=== PATIENT | male | born 1980 | race African-American/Black ===

== ENCOUNTER 2017-02-06 12:50 | Inpatient (IN) | payer OTHER ==
--- NOTE | 2017-02-06 15:39 | HP ---
CIWA Score - CIWA Score Nausea/Vomitin Muscle Tremors: 3 Anxiety: 3 Agitation: 3 Paroxysmal Sweats: 2 Orientation: 0-Oriented Tacttile Disturbances: 2-Mild Itch/Numbness/Burn Auditory Disturbances: 2-Mild Harshness/Frighten Visual Disturbances: 2-Mild Sensitivity Headache: 2-Mild CIWA-Ar Total Score: 22 Admission ROS BHS - HPI Chief Complaint: i am here for detox from alcohol Allergies/Adverse Reactions: Allergies Allergy/AdvReac Type Severity Reaction Status Date / Time No Known Allergies Allergy Verified 02/06/17 16:18 History of Present Illness: this 36 years old male with alcohol dependence.seeking detox from alcohol,last detox [facility] to 06/20/ not completed seizure alcohol related syncope nicotine dependence no significant period for sobriety - Ebola screening Have you traveled outside of the country in the last 21 days: No Have you had contact with anyone from an Ebola affected area: No Have you been sick,other than usual withdrawal symptoms: No Do you have a fever: No - Review of Systems Constitutional: Chills, Loss of Appetite, Malaise, Night Sweats, Changes in sleep, Unintentional Wgt. Loss EENT: reports: Nose Congestion Respiratory: reports: No Symptoms reported Cardiac: reports: Palpitations GI: reports: Diarrhea, Nausea, Poor Appetite, Vomiting : reports: No Symptoms Reported Musculoskeletal: reports: Back Pain, Muscle Pain Integumentary: reports: Dryness Endocrine: reports: No Symptoms Reported Hematology: reports: No Symptoms Reported Psychiatric: reports: Anxious (insomnia), Depressed Patient History - Patient Medical History Hx Anemia: No Hx Asthma: No Hx Chronic Obstructive Pulmonary Disease (COPD): No Hx Cancer: No Hx Cardiac Disorders: No Hx Congestive Heart Failure: No Hx Hypertension: No Hx Hypercholesterolemia: No Hx Pacemaker: No HX Cerebrovascular Accident: No Hx Seizures: Yes (drug reaction 2005 and a second for cocaine injgestion 2004) Hx Dementia: No Hx Diabetes: No Hx Gastrointestinal Disorders: No Hx Liver Disease: No Hx Genitourinary Disorders: No Hx Sexually Transmitted Disorders: No Hx Renal Disease (ESRD): No Hx Thyroid Disease: No Hx Human Immunodeficiency Virus (HIV): No (last in 12/10) Hx Hepatitis C: No Hx Depression: No Hx Suicide Attempt: No Hx Bipolar Disorder: Yes (WAS ON SEROQUEL,RISPERDAL AND CELEXA) Hx Schizophrenia: Yes Other Medical History: no suicidal,no homicidal - Patient Surgical History Past Surgical History: No Hx Neurologic Surgery: No Hx Cataract Extraction: No Hx Cardiac Surgery: No Hx Lung Surgery: No Hx Breast Surgery: No Hx Breast Biopsy: No Hx Abdominal Surgery: No Hx Appendectomy: No Hx Cholecystectomy: No Hx Genitourinary Surgery: No Hx Section: No Hx Orthopedic Surgery: No - PPD History Previous Implant?: Yes Documented Results: Negative w/o proof Implanted On Prior [facility] Admission?: Yes Date: 06/20/15 Results: 00mm PPD to be Administered?: Yes - Smoking Cessation Smoking history: Current every day smoker Have you smoked in the past 12 months: Yes Aproximately how many cigarettes per day: 15 Cigars Per Day: 0 Hx Chewing Tobacco Use: No Initiated information on smoking cessation: Yes 'Breaking Loose' booklet given: 02/06/17 - Substances Abused Alcohol Route: Oral Frequency: Daily Amount used: 2 pints vodka Age of first use: 13 Date of Last Use: 02/06/17 Family Disease History - Family Disease History Family History: Denies Admission Physical Exam S - Vital Signs Vital Signs: Vital Signs - 24 hr 02/06/17 14:33 Temperature 97 F L Pulse Rate 98 H Respiratory 20 Rate Blood Pressure 120/71 - Physical General Appearance: Yes: Moderate Distress, Tremorous, Irritable, Sweating, Anxious HEENTM: Yes: Hearing grossly Normal, Normal ENT Inspection, BORIS, Pharynx Normal Respiratory: Yes: Lungs Clear, Normal Breath Sounds Neck: Yes: Within Normal Limits, Supple, Trachea in good position Breast: Yes: Within Normal Limits Cardiology: Yes: Within Normal Limits, Regular Rhythm, Regular Rate, S1, S2 Abdominal: Yes: Within Normal Limits, Normal Bowel Sounds, Non Tender, Flat, Soft Genitourinary: Yes: Within Normal Limits Back: Yes: Muscle Spasm Musculoskeletal: Yes: full range of Motion, Back pain, Muscle Pain Extremities: Yes: Within Normal Limits, Normal Range of Motion, Tremors Neurological: Yes: Within Normal Limits, 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 NML intact, Fully Oriented, Alert, Motor Strength 5/5 Integumentary: Yes: Dry Lymphatic: Yes: Within Normal Limits - Diagnostic (1) Alcohol dependence with uncomplicated withdrawal Current Visit: Yes Status: Acute (2) Nicotine dependence Current Visit: Yes Status: Acute (3) Weight decreased Current Visit: No Status: Acute (4) Anxiety and depression Current Visit: Yes Status: Acute (5) Insomnia Current Visit: Yes Status: Acute (6) Schizoaffective disorder Current Visit: Yes Status: Suspected Qualifiers: Schizoaffective disorder type: other Qualified Code(s): F25.8 - Other schizoaffective disorders Comment: Self-report.Non adherent to medications. (7) Seizure Current Visit: Yes Status: Acute (8) Syncope Current Visit: Yes Status: Acute Cleared for Admission [facility] - Detox or Rehab [facility] Level of Care: Medically Managed Detox Regimen/Protocol: Librium [facility] Breath Alcohol Content Breath Alcohol Content: 0.232 Urine Drug Screen - Results Drug Screen Negative: No Urine Drug Screen Results: BZO-Benzodiazepines
[2017-02-06 15:51] VITALS: BMI 20.9
[2017-02-06] MEDS ORDERED: MAGNESIUM CITRATE 300 ML BOTTLE PO PRN (15:52)
[2017-02-06] MEDS ORDERED: LOPERAMIDE HCL 2 MG CAPSULE PO PRN (15:52)
[2017-02-06] MEDS ORDERED: diphenhydrAMINE HCL 50 MG CAPSULE PO PRN (15:52)
[2017-02-06] MEDS ORDERED: P-EPHED 60MG/TRIPROLIDI 2.5MG TABLET PO PRN (15:52)
[2017-02-06] MEDS ORDERED: guaiFENesin/D-METHORPHAN HB 10 ML UNIT-DOSE CUPS PO PRN (15:52)
[2017-02-06] MEDS ORDERED: MAG HYDROX/AL HYDROX/SIMETH 30 ML UNIT-DOSE CUP PO PRN (15:52)
[2017-02-06] MEDS ORDERED: chlordiazePOXIDE HCL 25 MG CAPSULE PO PRN (15:52)
[2017-02-06] MEDS ORDERED: MENTHOL/PHENOL 1 EACH UD MM PRN (15:52)
[2017-02-06] MEDS ORDERED: MAGNESIUM HYDROX 2400MG/30ML ORAL SUSPENSION 30 ML CUP PO PRN (15:52)
[2017-02-06] MEDS ORDERED: chlordiazePOXIDE HCL 25 MG CAPSULE PO ONE (16:45)
--- NOTE | 2017-02-06 17:11 | CONSULT ---
[facility] Psychiatric Consult - Data Date of interview: 02/06/17 Admission source: [facility] Identifying data: Readmission to [facility] for this 36 y/o AA male seeking detox treatment on for alcohol dependence (uses cocaine occasionally) .Patient is single,a father of two,homeless (lives in a fpc),unemployed and supported by relatives. Substance Abuse History: Patient reports abusing alcohol since age 13.Consumes Marina rum,vodka and beer on a daily basis."Whatever I can get my hands on." Admits to drinking 2 pints-2 1/2 pints of vodka daily + 2-3 x 12 oz cans of beer /day.Smokes 10 - 15 cigarettes daily.Has not used cocaine (snorting) for several months as per self-report. Medical History: History of abnormal liver function tests (elevated enzymes) in 2014.Alcohol-related seizures. Psychiatric History: No reported history of psychiatric hospitalizations.He Patient states that he used to get [facility] psychiatric services at the [facility].At the time,he was managed (under the diagnosis of Schizoaffective Disorder) on a regimen of risperdal,celexa and seroquel.Mr Santoyo indicates that he has been lost to psychiatric follow up for several months.No history of suicide attempts. Physical/Sexual Abuse/Trauma History: Patient denies. Mental Status Exam - Mental Status Exam Alert and Oriented to: Time, Place, Person Cognitive Function: Good Patient Appearance: Unkempt, Disheveled Mood: Nervous, Anxious, Apprehensive Affect: Mood Congruent Patient Behavior: Fatigued, Appropriate, Cooperative (friendly) Speech Pattern: Clear, Appropriate Voice Loudness: Normal Thought Process: Goal Oriented Thought Disorder: Not Present Hallucinations: Denies Suicidal Ideation: Denies Homicidal Ideation: Denies Insight/Judgement: Poor Sleep: Poorly, Difficulty falling asleep Appetite: Good Muscle strength/Tone: Normal Gait/Station: Normal Psychiatric Findings - Problem List ([place] 1, 2,3) (1) Alcohol dependence with uncomplicated withdrawal Current Visit: Yes Status: Acute (2) Nicotine dependence Current Visit: Yes Status: Acute (3) Schizoaffective disorder Current Visit: Yes Status: Suspected Qualifiers: Schizoaffective disorder type: other Qualified Code(s): F25.8 - Other schizoaffective disorders Comment: Self-report.Non adherent to medications. (4) Substance induced mood disorder Current Visit: Yes Status: Acute (5) Insomnia Current Visit: Yes Status: Acute - Initial Treatment Plan Initial Treatment Plan: Psychoeducation.Detoxification.Ambien 10 mg po hs prn.Patient is made aware of risk of parasomnias.He agrees with this careplan.Observation.Medications reconciliation : No home medications.Pharmacy claims : NONE.
[2017-02-06] MEDS: NICOTINE 21 MG/24 HOURS TOPICAL PATCH TD SCH (17:18)
[2017-02-06 21:20] LABS: URINE APPEARANCE SLCLOUDY; URINE BLOOD NEGATIVE (NEGATIVE); URINE COLOR AMBER; URINE GLUCOSE (UA) NEGATIVE (NEGATIVE); URINE KETONE TRACE (NEGATIVE); URINE LEUK ESTERASE NEGATIVE (NEGATIVE); URINE NITRITE NEGATIVE (NEGATIVE); URINE UROBILINOGEN 4.0 E.U/dl mg/dL (0.2-1.0)
[2017-02-06 21:21] LABS: URINE PROTEIN 1+ (NEGATIVE)
[2017-02-06] MEDS: THIAMINE HCL 100 MG TABLET (FP) PO SCH (22:09)
[2017-02-06] MEDS: chlordiazePOXIDE HCL 25 MG CAPSULE PO SCH (22:10)
[2017-02-06] MEDS: ZOLPIDEM TARTRATE 10 MG TABLET (PARK CARE ONLY) PO PRN (22:10)
[2017-02-06 22:29] LABS: URINE BACTERIA RARE /hpf (NONE SEEN); URINE HYALINE CAST 1 /lpf; URINE MUCUS MANY; URINE RBC 1 /hpf (0-3); URINE WBC 1 /hpf (3-5)
[2017-02-07] MEDS: chlordiazePOXIDE HCL 25 MG CAPSULE PO SCH ×4 (05:33→22:14)
[2017-02-07] MEDS: NICOTINE 21 MG/24 HOURS TOPICAL PATCH TD SCH (10:12)
[2017-02-07] MEDS: PRENATAL VITAMINS W/ FOLIC ACID TABLET (FP) PO SCH (10:12)
[2017-02-07 10:22] LABS: MCH 35.3 pg (25.7-33.7); MCHC 33.1 g/dl (32.0-35.9); MEAN CELL VOLUME 106.6 fl (80-96); MEAN PLT VOLUME 10.3 fl (7.5-11.1); PLATELET COUNT 135 K/MM3 (134-434); RDW 17.6 % (11.9-15.9); WHITE BLOOD COUNT 10.4 K/mm3 (4.0-10.0)
[2017-02-07 10:43] LABS: ALBUMIN 2.2 g/dl (3.4-5.0); ALK PHOS 584 U/L (45-117); ANION GAP 11 (8-16); BILIRUBIN,TOTAL 4.9 mg/dL (0.2-1.0); CALCIUM 7.7 mg/dL (8.5-10.1); CO2 27 mmol/L (21-32); CREATININE 0.6 mg/dL (0.7-1.3); GLUCOSE,RANDOM 75 mg/dL (74-106); SGPT/ALT 193 U/L (12-78); TOT PROT 6.9 g/dl (6.4-8.2)
[2017-02-07 10:44] LABS: SGOT/AST 556 U/L (15-37)
[2017-02-07 11:26] LABS: HIV 1 & 2 AB NEGATIVE; HIV 1 AGp24 NEGATIVE
--- NOTE | 2017-02-07 12:07 | PN ---
S CIWA - CIWA Score Nausea/Vomitin Muscle Tremors: 4-Moderate,w/Arms Extend Anxiety: 4-Mod. Anxious/Guarded Agitation: 3 Paroxysmal Sweats: 3 Orientation: 0-Oriented Tacttile Disturbances: 0-None Auditory Disturbances: 0-None Visual Disturbances: 0-None Headache: 0-None Present CIWA-Ar Total Score: 16 S Progress Note (SOAP) Subjective: Anxiety,tremors,sweating,interrupted sleep,restless Objective: 02/07/17 12:04 Vital Signs - 8 hr 02/07/17 02/07/17 06:23 09:55 Temperature 98.9 F 100.3 F H Pulse Rate 102 H 105 H Respiratory 18 20 Rate Blood Pressure 113/79 124/77 Laboratory Results - last 24 hr 02/06/17 02/06/17 02/07/17 05:45 20:59 05:45 WBC 10.4 H D RBC 3.12 L D Hgb 11.0 L D Hct 33.3 L D MCV 106.6 H MCH 35.3 H MCHC 33.1 RDW 17.6 H D Plt Count 135 D MPV 10.3 D Sodium Potassium Chloride Carbon Dioxide Anion Gap BUN Creatinine Creat Clearance w eGFR Random Glucose Calcium Total Bilirubin AST ALT Alkaline Phosphatase Total Protein Albumin Urine Color [place] Urine Appearance Slcloudy Urine pH 5.0 Urine Protein 1+ H Urine Glucose (UA) Negative Urine Ketones Trace H Urine Blood Negative Urine Nitrite Negative Urine Bilirubin 4.0 Urine Urobilinogen 4.0 e.u/dl Ur Leukocyte Esterase Negative Urine RBC 1 Urine WBC 1 Ur Epithelial Cells Rare Urine Bacteria Rare Hyaline Casts 1 Urine Mucus Many RPR Titer HIV 1&2 Antibody Screen Negative HIV P24 Antigen Negative 02/07/17 02/07/17 05:45 05:45 WBC RBC Hgb Hct MCV MCH MCHC RDW Plt Count MPV Sodium 138 Potassium 4.1 Chloride 100 Carbon Dioxide 27 Anion Gap 11 BUN 13 D Creatinine 0.6 L Creat Clearance w eGFR > 60 Random Glucose 75 Calcium 7.7 L Total Bilirubin 4.9 H D AST 556 H ALT 193 H D Alkaline Phosphatase 584 H D Total Protein 6.9 Albumin 2.2 L D Urine Color Urine Appearance Urine pH Urine Protein Urine Glucose (UA) Urine Ketones Urine Blood Urine Nitrite Urine Bilirubin Urine Urobilinogen Ur Leukocyte Esterase Urine RBC Urine WBC Ur Epithelial Cells Urine Bacteria Hyaline Casts Urine Mucus RPR Titer Nonreactive HIV 1&2 Antibody Screen HIV P24 Antigen labs noted,abnormal liver enzymes Assessment: 02/07/17 12:06 Withdrawal sx. Enzyminitis Plan: Continue detox repeat labs
[2017-02-07 13:39] LABS: ANISOCYTOSIS 2+; MACROCYTOSIS 3+
[2017-02-07 13:40] LABS: SPHEROCYTE 2+; TARGET CELLS 4+; TEAR DROP CELLS 1+
[2017-02-07] MEDS: IBUPROFEN 400 MG TABLET (FP) PO PRN (19:57)
[2017-02-07] MEDS: THIAMINE HCL 100 MG TABLET (FP) PO SCH (22:14)
[2017-02-07] MEDS: ZOLPIDEM TARTRATE 10 MG TABLET (PARK CARE ONLY) PO PRN (22:14)
[2017-02-08] MEDS: chlordiazePOXIDE HCL 25 MG CAPSULE PO SCH ×3 (05:54→17:14)
[2017-02-08] MEDS ORDERED: ONDANSETRON *ODT* 4 MG TABLET SL PRN (09:44)
[2017-02-08] MEDS: PRENATAL VITAMINS W/ FOLIC ACID TABLET (FP) PO SCH (10:13)
[2017-02-08] MEDS: NICOTINE 21 MG/24 HOURS TOPICAL PATCH TD SCH (10:13)
[2017-02-08] MEDS: ACETAMINOPHEN 325 MG TABLET (FP) PO PRN (10:14)
--- NOTE | 2017-02-08 12:01 | PN ---
S CIWA - CIWA Score Nausea/Vomitin Muscle Tremors: 4-Moderate,w/Arms Extend Anxiety: 3 Agitation: 1-Slight > Activity Paroxysmal Sweats: 3 Orientation: 2-Disoriented Date<2 days Tacttile Disturbances: 0-None Auditory Disturbances: 2-Mild Harshness/Frighten Visual Disturbances: 0-None Headache: 0-None Present CIWA-Ar Total Score: 20 BHS Progress Note (SOAP) Subjective: Interrupted sleep, Vomiting, Body Aches, Tremors, Sweating. Objective: PT. A & O X 1 (DISORIENTED ABOUT DAY / DATE AND ABOUT CURRENT LOCATION). NO ACUTE DISTRESS. 02/08/17 11:58 Vital Signs Temperature 98.2 F 02/08/17 09:54 Pulse Rate 94 H 02/08/17 09:54 Respiratory Rate 16 02/08/17 09:54 Blood Pressure 111/74 02/08/17 09:54 O2 Sat by Pulse Oximetry (%) Laboratory Tests 02/06/17 02/06/17 02/07/17 05:45 20:59 05:45 WBC 10.4 H D RBC 3.12 L D Hgb 11.0 L D Hct 33.3 L D MCV 106.6 H MCH 35.3 H MCHC 33.1 RDW 17.6 H D Plt Count 135 D MPV 10.3 D Nucleated RBC % No Result Required. Toxic Granulation No Result Required. Dohle Bodies No Result Required. Diana Rods No Result Required. Platelet Estimate No Result Required. Poikilocytosis No Result Required. Anisocytosis 2+ Macrocytosis 3+ Spherocytes 2+ Target Cells 4+ Tear Drop Cells 1+ Ovalocytes No Result Required. [place] Bodies No Result Required. [place] Rings No Result Required. Acanthocytes (Spur) No Result Required. Morphology Comment No Result Required. Sodium Potassium Chloride Carbon Dioxide Anion Gap BUN Creatinine Creat Clearance w eGFR Random Glucose Calcium Total Bilirubin AST ALT Alkaline Phosphatase Total Protein Albumin Urine Color [place] Urine Appearance Slcloudy Urine pH 5.0 Ur Specific [place] 1.020 Urine Protein 1+ H Urine Glucose (UA) Negative Urine Ketones Trace H Urine Blood Negative Urine Nitrite Negative Urine Bilirubin 4.0 Urine Urobilinogen 4.0 e.u/dl Ur Leukocyte Esterase Negative Urine RBC 1 Urine WBC 1 Ur Epithelial Cells Rare Urine Bacteria Rare Hyaline Casts 1 Urine Mucus Many RPR Titer HIV 1&2 Antibody Screen Negative HIV P24 Antigen Negative 02/07/17 02/07/17 05:45 05:45 WBC RBC Hgb Hct MCV MCH MCHC RDW Plt Count MPV Nucleated RBC % Toxic Granulation Dohle Bodies Diana Rods Platelet Estimate Poikilocytosis Anisocytosis Macrocytosis Spherocytes Target Cells Tear Drop Cells Ovalocytes Alv[place] Bodies Virgil Rings Acanthocytes (Spur) Morphology Comment Sodium 138 Potassium 4.1 Chloride 100 Carbon Dioxide 27 Anion Gap 11 BUN 13 D Creatinine 0.6 L Creat Clearance w eGFR > 60 Random Glucose 75 Calcium 7.7 L Total Bilirubin 4.9 H D AST 556 H ALT 193 H D Alkaline Phosphatase 584 H D Total Protein 6.9 Albumin 2.2 L D Urine Color Urine Appearance Urine pH Ur Specific [place] Urine Protein Urine Glucose (UA) Urine Ketones Urine Blood Urine Nitrite Urine Bilirubin Urine Urobilinogen Ur Leukocyte Esterase Urine RBC Urine WBC Ur Epithelial Cells Urine Bacteria Hyaline Casts Urine Mucus RPR Titer Nonreactive HIV 1&2 Antibody Screen HIV P24 Antigen LABS NOTED. Assessment: 02/08/17 11:59 WITHDRAWAL SYMPTOMS. Plan: CONTINUE DETOX.
[2017-02-08] MEDS: IBUPROFEN 400 MG TABLET (FP) PO PRN (15:20)
--- NOTE | 2017-02-08 20:03 | EKG ---
Test Reason : Blood Pressure : / mmHG Vent. Rate : 102 BPM Atrial Rate : 102 BPM P-R Int : 126 ms QRS Dur : 090 ms QT Int : 356 ms P-R-T Axes : 051 029 031 degrees QTc Int : 463 ms SINUS TACHYCARDIA OTHERWISE NORMAL ECG NO PREVIOUS ECGS AVAILABLE Confirmed by GRAYSON PADILLA MD ([id number] on 02/08/2017 8:02:38 PM Referred By: Richi Negro Confirmed By:GRAYSON PADILLA MD
[2017-02-08] MEDS: chlordiazePOXIDE 5 MG CAPSULE PO SCH (22:08)
[2017-02-08] MEDS: THIAMINE HCL 100 MG TABLET (FP) PO SCH (22:08)
[2017-02-08] MEDS: ZOLPIDEM TARTRATE 10 MG TABLET (PARK CARE ONLY) PO PRN (22:08)
[2017-02-09] MEDS: chlordiazePOXIDE 5 MG CAPSULE PO SCH ×3 (04:08→17:24)
[2017-02-09] MEDS: ACETAMINOPHEN 325 MG TABLET (FP) PO PRN ×2 (04:10→18:54)
[2017-02-09] MEDS: PRENATAL VITAMINS W/ FOLIC ACID TABLET (FP) PO SCH (10:17)
[2017-02-09] MEDS: NICOTINE 21 MG/24 HOURS TOPICAL PATCH TD SCH (10:18)
[2017-02-09 10:40] LABS: BILIRUBIN,TOTAL 4.5 mg/dL (0.2-1.0); CALCIUM 7.8 mg/dL (8.5-10.1)
--- NOTE | 2017-02-09 11:07 | PN ---
S Progress Note (SOAP) Subjective: nausea, sweats, interrupted sleep, anxiety, tremors Objective: 02/09/17 11:06 Vital Signs - 8 hr 02/09/17 02/09/17 02/09/17 03:30 06:41 10:03 Temperature 98.3 F 97.3 F L Pulse Rate 74 99 H Respiratory 18 18 18 Rate Blood Pressure 109/71 112/72 Laboratory Tests 02/06/17 02/06/17 02/07/17 05:45 20:59 05:45 WBC 10.4 H D RBC 3.12 L D Hgb 11.0 L D Hct 33.3 L D MCV 106.6 H MCH 35.3 H MCHC 33.1 RDW 17.6 H D Plt Count 135 D MPV 10.3 D Nucleated RBC % No Result Required. Toxic Granulation No Result Required. Dohle Bodies No Result Required. Diana Rods No Result Required. Platelet Estimate No Result Required. Poikilocytosis No Result Required. Anisocytosis 2+ Macrocytosis 3+ Spherocytes 2+ Target Cells 4+ Tear Drop Cells 1+ Ovalocytes No Result Required. Alvares-[place] Bodies No Result Required. [place] Rings No Result Required. Acanthocytes (Spur) No Result Required. Morphology Comment No Result Required. Sodium Potassium Chloride Carbon Dioxide Anion Gap BUN Creatinine Creat Clearance w eGFR Random Glucose Calcium Total Bilirubin AST ALT Alkaline Phosphatase Total Protein Albumin Urine Color [place] Urine Appearance Slcloudy Urine pH 5.0 Ur Specific [place] 1.020 Urine Protein 1+ H Urine Glucose (UA) Negative Urine Ketones Trace H Urine Blood Negative Urine Nitrite Negative Urine Bilirubin 4.0 Urine Urobilinogen 4.0 e.u/dl Ur Leukocyte Esterase Negative Urine RBC 1 Urine WBC 1 Ur Epithelial Cells Rare Urine Bacteria Rare Hyaline Casts 1 Urine Mucus Many RPR Titer HIV 1&2 Antibody Screen Negative HIV P24 Antigen Negative 02/07/17 02/07/17 05:45 05:45 WBC RBC Hgb Hct MCV MCH MCHC RDW Plt Count MPV Nucleated RBC % Toxic Granulation Dohle Bodies Diana Rods Platelet Estimate Poikilocytosis Anisocytosis Macrocytosis Spherocytes Target Cells Tear Drop Cells Ovalocytes Alvares-[place] Bodies [place]ell Rings Acanthocytes (Spur) Morphology Comment Sodium 138 Potassium 4.1 Chloride 100 Carbon Dioxide 27 Anion Gap 11 BUN 13 D Creatinine 0.6 L Creat Clearance w eGFR > 60 Random Glucose 75 Calcium 7.7 L Total Bilirubin 4.9 H D AST 556 H ALT 193 H D Alkaline Phosphatase 584 H D Total Protein 6.9 Albumin 2.2 L D Urine Color Urine Appearance Urine pH Ur Specific [place] Urine Protein Urine Glucose (UA) Urine Ketones Urine Blood Urine Nitrite Urine Bilirubin Urine Urobilinogen Ur Leukocyte Esterase Urine RBC Urine WBC Ur Epithelial Cells Urine Bacteria Hyaline Casts Urine Mucus RPR Titer Nonreactive HIV 1&2 Antibody Screen HIV P24 Antigen elevated lfts, hypoalbuminemia, anemia Assessment: 02/09/17 11:07 withdrawal sx, hepatitis Plan: cont detox, repeat labwork
[2017-02-09] MEDS: IBUPROFEN 400 MG TABLET (FP) PO PRN (17:59)
--- NOTE | 2017-02-09 20:49 | PN ---
[facility] Progress Note Note: received nurse reports that the patient has back pain x 2 weeks, needed to be seen patient is in the shower upon arrival to the unit nurse states that the patient received one dose of tylenal, felt better, was moving around and taking a shower at this time. continue detox
[2017-02-09] MEDS: chlordiazePOXIDE HCL 10 MG CAPSULE PO SCH (22:13)
[2017-02-09] MEDS: THIAMINE HCL 100 MG TABLET (FP) PO SCH (22:13)
[2017-02-10] MEDS: chlordiazePOXIDE HCL 10 MG CAPSULE PO SCH (05:49)
[2017-02-10] MEDS: IBUPROFEN 400 MG TABLET (FP) PO PRN (05:50)
[2017-02-10 09:30] VITALS: BP 110/74; PULSE 84; TEMP 97
--- NOTE | 2017-02-10 11:00 | DS ---
[facility] Detox Discharge Summary Admission Date: 02/06/17 Discharge Date: 02/10/17 - History Present History: Alcohol Dependence, Cannabis Dependence, Cocaine Dependence Pertinent Past History: insomnia - Physical Exam Results Vital Signs: Vital Signs Temperature 97.0 F L 02/10/17 09:45 Pulse Rate 84 02/10/17 09:45 Respiratory Rate 20 02/10/17 09:45 Blood Pressure 110/74 02/10/17 09:45 O2 Sat by Pulse Oximetry (%) Pertinent Admission Physical Exam Findings: Withdrawal sx. Laboratory Last Values WBC 10.4 K/mm3 (4.0-10.0) H D 02/07/17 05:45 RBC 3.12 M/mm3 (4.00-5.60) L D 02/07/17 05:45 Hgb 11.0 GM/dL (11.7-16.9) L D 02/07/17 05:45 Hct 33.3 % (35.4-49) L D 02/07/17 05:45 MCV 106.6 fl (80-96) H 02/07/17 05:45 MCH 35.3 pg (25.7-33.7) H 02/07/17 05:45 MCHC 33.1 g/dl (32.0-35.9) 02/07/17 05:45 RDW 17.6 % (11.9-15.9) H D 02/07/17 05:45 Plt Count 135 K/MM3 (134-434) D 02/07/17 05:45 MPV 10.3 fl (7.5-11.1) D 02/07/17 05:45 Nucleated RBC % No Result Required. 02/07/17 05:45 Toxic Granulation No Result Required. 02/07/17 05:45 Dohle Bodies No Result Required. 02/07/17 05:45 Diana Rods No Result Required. 02/07/17 05:45 Platelet Estimate No Result Required. 02/07/17 05:45 Poikilocytosis No Result Required. 02/07/17 05:45 Anisocytosis 2+ 02/07/17 05:45 Macrocytosis 3+ 02/07/17 05:45 Spherocytes 2+ 02/07/17 05:45 Target Cells 4+ 02/07/17 05:45 Tear Drop Cells 1+ 02/07/17 05:45 Ovalocytes No Result Required. 02/07/17 05:45 Alvares-Mondovi Bodies No Result Required. 02/07/17 05:45 [place] Rings No Result Required. 02/07/17 05:45 Acanthocytes (Spur) No Result Required. 02/07/17 05:45 Morphology Comment No Result Required. 02/07/17 05:45 Sodium 138 mmol/L (136-145) 02/07/17 05:45 Potassium 4.1 mmol/L (3.5-5.1) 02/07/17 05:45 Chloride 100 mmol/L (98-107) 02/07/17 05:45 Carbon Dioxide 27 mmol/L (21-32) 02/07/17 05:45 Anion Gap 11 (8-16) 02/07/17 05:45 BUN 13 mg/dL (7-18) D 02/07/17 05:45 Creatinine 0.6 mg/dL (0.7-1.3) L 02/07/17 05:45 Creat Clearance w eGFR > 60 (>60) 02/07/17 05:45 Random Glucose 75 mg/dL (74-106) 02/07/17 05:45 Calcium 7.8 mg/dL (8.5-10.1) L 02/09/17 07:00 Total Bilirubin 4.5 mg/dL (0.2-1.0) H 02/09/17 07:00 AST 253 U/L (15-37) H D 02/09/17 07:00 ALT 113 U/L (12-78) H D 02/09/17 07:00 Alkaline Phosphatase 448 U/L (45-117) H D 02/09/17 07:00 Total Protein 6.9 g/dl (6.4-8.2) 02/07/17 05:45 Albumin 2.2 g/dl (3.4-5.0) L D 02/07/17 05:45 Urine Color [place] 02/06/17 20:59 Urine Appearance Slcloudy 02/06/17 20:59 Urine pH 5.0 (5.0-8.0) 02/06/17 20:59 Ur Specific [place] 1.020 (1.005-1.025) 02/06/17 20:59 Urine Protein 1+ (NEGATIVE) H 02/06/17 20:59 Urine Glucose (UA) Negative (NEGATIVE) 02/06/17 20:59 Urine Ketones Trace (NEGATIVE) H 02/06/17 20:59 Urine Blood Negative (NEGATIVE) 02/06/17 20:59 Urine Nitrite Negative (NEGATIVE) 02/06/17 20:59 Urine Bilirubin 4.0 (NEGATIVE) 02/06/17 20:59 Urine Urobilinogen 4.0 e.u/dl mg/dL (0.2-1.0) 02/06/17 20:59 Ur Leukocyte Esterase Negative (NEGATIVE) 02/06/17 20:59 Urine RBC 1 /hpf (0-3) 02/06/17 20:59 Urine WBC 1 /hpf (3-5) 02/06/17 20:59 Ur Epithelial Cells Rare /hpf (FEW) 02/06/17 20:59 Urine Bacteria Rare /hpf (NONE SEEN) 02/06/17 20:59 Hyaline Casts 1 /lpf 02/06/17 20:59 Urine Mucus Many 02/06/17 20:59 RPR Titer Nonreactive (NONREACTIVE) 02/07/17 05:45 HIV 1&2 Antibody Screen Negative 02/06/17 05:45 HIV P24 Antigen Negative 02/06/17 05:45 labs noted,liver enzymes are trending down - Treatment Hospital Course: Detox Protocol Followed, Detoxed Safely, Responded well, Discharged Condition Good, Rehab Referral Accepted Patient has Accepted a Rehab Referral to: [facility], [facility] - Medication Discharge Medications: Ambulatory Orders NK [No Known Home Medication] 02/06/17 - Diagnosis (1) Alcohol dependence with uncomplicated withdrawal Status: Acute (2) Cannabis dependence Status: Acute (3) Cocaine dependence Status: Acute Qualifiers: Substance use status: uncomplicated Qualified Code(s): F14.20 - Cocaine dependence, uncomplicated (4) Drug-induced mood disorder Status: Acute (5) Schizoaffective disorder Status: Suspected Qualifiers: Schizoaffective disorder type: other Qualified Code(s): F25.8 - Other schizoaffective disorders - AMA Did Patient Leave Against Medical Advice: No
== END 2017-02-10 08:58 | disposition home or self-care (01) | DRG 774 ==
LOC: YASAS 12:50 → Y3N 16:12
PROVIDERS: ADMIT Internal Medicine; ATTEND Internal Medicine
PROC: HZ2ZZZZ Detoxification Services for Substance Abuse Treatment (ICD-10-PCS; principal; 2017-02-06)
DX: F10.230 Alcohol dependence with withdrawal, uncomplicated (principal); F14.20 Cocaine dependence, uncomplicated; F12.20 Cannabis dependence, uncomplicated; F17.210 Nicotine dependence, cigarettes, uncomplicated; F19.24 Other psychoactive substance dependence with psychoactive substance-induced mood disorder; F25.9 Schizoaffective disorder, unspecified; G47.00 Insomnia, unspecified; R94.5 Abnormal results of liver function studies; E88.09 Other disorders of plasma-protein metabolism, not elsewhere classified; D64.9 Anemia, unspecified; Z86.69 Personal history of other diseases of the nervous system and sense organs; Z87.898 Personal history of other specified conditions; Z86.79 Personal history of other diseases of the circulatory system
CPT/HCPCS: 36415; 80053; 81003; 81015; 82247; 82310; 84075; 84450; 84460; 85027; 86593; 87389; 93005; 93010

== ENCOUNTER 2017-06-21 18:51 | Inpatient (IN) | payer OTHER ==
[2017-06-21 19:09] VITALS: BMI 22.0
--- NOTE | 2017-06-21 21:07 | HP ---
CIWA Score - CIWA Score Nausea/Vomitin (vomiting x 3) Muscle Tremors: 4-Moderate,w/Arms Extend Anxiety: 4-Mod. Anxious/Guarded Agitation: 3 Paroxysmal Sweats: 1-Minimal Palms Moist Orientation: 0-Oriented Tacttile Disturbances: 0-None Auditory Disturbances: 0-None Visual Disturbances: 0-None Headache: 4-Moderately Severe CIWA-Ar Total Score: 19 Admission ROS S - HPI Chief Complaint: Alcohol withdrawal symptoms Allergies/Adverse Reactions: Allergies Allergy/AdvReac Type Severity Reaction Status Date / Time No Known Allergies Allergy Verified 02/06/17 16:18 History of Present Illness: 36 years old male with a long history of alcohol dependence is admitted to rehab. Patient reports previous admission to detox, last at [facility] in January 2017. He has insignificant period of abstinence and medical history of seizures and depression. Denies suicidal ideation at this time. Exam Limitations: No Limitations - Ebola screening Have you traveled outside of the country in the last 21 days: No Have you had contact with anyone from an Ebola affected area: No Have you been sick,other than usual withdrawal symptoms: No Do you have a fever: No - Review of Systems Constitutional: Loss of Appetite, Malaise, Night Sweats, Changes in sleep, Weakness EENT: reports: No Symptoms Reported, Blurred Vision, Nose Congestion, Sinus Pressure Respiratory: reports: No Symptoms reported Cardiac: reports: No Symptoms Reported GI: reports: Poor Appetite, Poor Fluid Intake, Vomiting, Abdominal cramping : reports: No Symptoms Reported Musculoskeletal: reports: Muscle Pain, Muscle Weakness Integumentary: reports: Flushing, Other Neuro: reports: Headache, Tingling, Tremors Endocrine: reports: Flushing Hematology: reports: No Symptoms Reported Psychiatric: reports: Orientated x3, Agitated, Anxious, Depressed Other Systems: Reviewed and Negative Patient History - Patient Medical History Hx Anemia: No Hx Asthma: No Hx Chronic Obstructive Pulmonary Disease (COPD): No Hx Cancer: No Hx Cardiac Disorders: No Hx Congestive Heart Failure: No Hx Hypertension: No Hx Hypercholesterolemia: No Hx Pacemaker: No HX Cerebrovascular Accident: No Hx Seizures: Yes (Etoh-related, 3 weeks ago) Hx Dementia: No Hx Diabetes: No Hx Gastrointestinal Disorders: No Hx Liver Disease: No Hx Genitourinary Disorders: No Hx Sexually Transmitted Disorders: No Hx Renal Disease (ESRD): No Hx Thyroid Disease: No Hx Human Immunodeficiency Virus (HIV): No (Negative 11/2016) Hx Hepatitis C: No Hx Depression: Yes Hx Suicide Attempt: No Hx Bipolar Disorder: Yes (WAS ON SEROQUEL,RISPERDAL AND CELEXA) Hx Schizophrenia: No - Patient Surgical History Past Surgical History: No Hx Neurologic Surgery: No Hx Cataract Extraction: No Hx Cardiac Surgery: No Hx Lung Surgery: No Hx Abdominal Surgery: No Hx Appendectomy: No Hx Cholecystectomy: No Hx Genitourinary Surgery: No Hx Orthopedic Surgery: No Anesthesia Reaction: No - PPD History Previous Implant?: Yes Documented Results: Negative w/proof Implanted On Prior [facility] Admission?: Yes Date: 02/08/17 Results: 0mm PPD to be Administered?: No - Reproductive History Patient is a Female of Child Bearing Age (11 -55 yrs old): No (Male) - Smoking Cessation Smoking history: Current every day smoker Have you smoked in the past 12 months: Yes Aproximately how many cigarettes per day: 15 Cigars Per Day: 0 Hx Chewing Tobacco Use: No Initiated information on smoking cessation: Yes 'Breaking Loose' booklet given: 06/21/17 - Substance & Tx. History Hx Alcohol Use: Yes Hx Substance Use Treatment: Yes - Substances Abused Alcohol Route: Oral Frequency: Daily Amount used: Beer 2 x 6pack, Vodka 1-2 pints Age of first use: 13 Date of Last Use: 06/21/17 Family Disease History - Family Disease History Family Disease History: Respiratory: Father (alcohol), Mother (alcohol, ) Admission Physical Exam [facility] - Vital Signs Vital Signs: Vital Signs - 24 hr 06/21/17 19:07 Temperature 97.3 F L Pulse Rate 98 H Respiratory 18 Rate Blood Pressure 118/67 - Physical General Appearance: Yes: Moderate Distress, Alcohol on Breath, Tremorous, Irritable, Sweating, Anxious HEENTM: Yes: EOMI, Normal Voice, BORIS Respiratory: Yes: Lungs Clear, Normal Breath Sounds, No Respiratory Distress Neck: Yes: No masses,lesions,Nodules, Supple, Trachea in good position Breast: Yes: Breast Exam Deferred Cardiology: Yes: Regular Rhythm, Regular Rate, S1, S2 Abdominal: Yes: Normal Bowel Sounds, Non Tender, Soft Genitourinary: Yes: Within Normal Limits Back: Yes: Within Normal Limits Musculoskeletal: Yes: Muscle Pain, Muscle weakness Extremities: Yes: Tremors Neurological: Yes: Alert, Normal Mood/Affect Integumentary: Yes: Dry Lymphatic: Yes: Within Normal Limits - Diagnostic (1) Alcohol dependence with uncomplicated withdrawal Current Visit: Yes Status: Chronic (2) Anxiety and depression Current Visit: Yes Status: Chronic (3) Nicotine dependence Current Visit: Yes Status: Chronic Qualifiers: Nicotine product type: cigarettes (4) Seizure Current Visit: Yes Status: Chronic Cleared for Admission [facility] - Detox or Rehab [facility] Level of Care: Medically Managed Detox Regimen/Protocol: Librium [facility] Breath Alcohol Content Breath Alcohol Content: 0.425 Urine Drug Screen - Results Drug Screen Negative: Yes
[2017-06-21] MEDS ORDERED: ACETAMINOPHEN 325 MG TABLET (FP) PO PRN (21:14)
[2017-06-21] MEDS ORDERED: P-EPHED 60MG/TRIPROLIDI 2.5MG TABLET PO PRN (21:14)
[2017-06-21] MEDS ORDERED: MAG HYDROX/AL HYDROX/SIMETH 30 ML UNIT-DOSE CUP PO PRN (21:14)
[2017-06-21] MEDS ORDERED: chlordiazePOXIDE HCL 25 MG CAPSULE PO PRN (21:14)
[2017-06-21] MEDS ORDERED: NICOTINE POLACRILEX 2 MG GUM BC PRN (21:14)
[2017-06-21] MEDS ORDERED: guaiFENesin/D-METHORPHAN HB 10 ML UNIT-DOSE CUPS PO PRN (21:14)
[2017-06-21] MEDS ORDERED: MAGNESIUM CITRATE 300 ML BOTTLE PO PRN (21:14)
[2017-06-21] MEDS ORDERED: chlordiazePOXIDE HCL 25 MG CAPSULE PO ONE (21:14)
[2017-06-21] MEDS ORDERED: MENTHOL/PHENOL 1 EACH UD MM PRN (21:14)
[2017-06-21] MEDS ORDERED: IBUPROFEN 400 MG TABLET (FP) PO PRN (21:14)
[2017-06-21] MEDS ORDERED: MAGNESIUM HYDROX 2400MG/30ML ORAL SUSPENSION 30 ML CUP PO PRN (21:14)
[2017-06-21] MEDS ORDERED: LOPERAMIDE HCL 2 MG CAPSULE PO PRN (21:14)
[2017-06-21] MEDS ORDERED: THIAMINE HCL 100 MG TABLET (FP) PO SCH (22:00)
[2017-06-21] MEDS: chlordiazePOXIDE HCL 25 MG CAPSULE PO SCH (22:13)
[2017-06-22 01:02] VITALS: BP 111/54; PULSE 98; TEMP 99.3
--- NOTE | 2017-06-22 01:17 | PN ---
[facility] Progress Note Note: Patient admitted to detox from alcohol dependence has abnormal EKG indicating atrial flutter with variable AV block. Patient denies history of HTN or any other cardiovascular disease and reports shortness of breath, palpitations and appears very anxious. His urine drug screen was negative. Patient is being transferred to ER for further evaluation. Endorsed to Dr. Escoto. Vital Signs - 8 hr 06/21/17 06/21/17 06/22/17 19:07 22:21 01:01 Temperature 97.3 F L 97.8 F 99.3 F Pulse Rate 98 H 100 H 98 H Respiratory 18 20 18 Rate Blood Pressure 118/67 135/75 111/54
[2017-06-22] MEDS: chlordiazePOXIDE HCL 25 MG CAPSULE PO SCH (06:53)
[2017-06-22 08:01] LABS: URINE APPEARANCE CLEAR; URINE BILIRUBIN NEGATIVE (NEGATIVE); URINE BLOOD 1+ (NEGATIVE); URINE COLOR AMBER; URINE GLUCOSE (UA) NEGATIVE (NEGATIVE); URINE KETONE NEGATIVE (NEGATIVE); URINE LEUK ESTERASE NEGATIVE (NEGATIVE); URINE NITRITE NEGATIVE (NEGATIVE); URINE PROTEIN NEGATIVE (NEGATIVE); URINE UROBILINOGEN 4.0 E.U/dl mg/dL (0.2-1.0)
[2017-06-22 08:22] LABS: URINE MUCUS FEW; URINE RBC 1 /hpf (0-3); URINE WBC 1 /hpf (3-5)
[2017-06-22] MEDS ORDERED: PRENATAL VITAMINS W/ FOLIC ACID TABLET (FP) PO SCH (10:00)
[2017-06-22] MEDS ORDERED: NICOTINE 14 MG/24 HOURS TOPICAL PATCH TD SCH (10:00)
[2017-06-22] MEDS ORDERED: FLU VACCINE QUAD 60 MCG/0.5 ML (MDV 17-18) IM ONE (12:00)
[2017-06-22] MEDS ORDERED: PNEUMOC 13-VAL CONJ-DIP CRM/PF 0.5 ML DISP.SYRIN IM ONE (12:00)
[2017-06-22] MEDS ORDERED: PNEUMOCOCCAL 23 VACCINE 0.5 ML VIAL IM ONE (12:00)
--- NOTE | 2017-06-22 13:12 | EKG ---
Test Reason : Blood Pressure : / mmHG Vent. Rate : 083 BPM Atrial Rate : 326 BPM P-R Int : 000 ms QRS Dur : 094 ms QT Int : 368 ms P-R-T Axes : 038 047 049 degrees QTc Int : 432 ms POOR DATA QUALITY, INTERPRETATION MAY BE ADVERSELY AFFECTED NORMAL SINUS RHYTHM Confirmed by TYLER SANCHEZ MD ([id number]) on 06/22/2017 1:12:02 PM Referred By: Confirmed By:TYLER SANCHEZ MD
[2017-06-22 19:18] LABS: URINE LEUK ESTERASE Negative (NEGATIVE)
[2017-06-22] MEDS ORDERED: chlordiazePOXIDE HCL 25 MG CAPSULE PO SCH (23:00)
[2017-06-23] MEDS ORDERED: chlordiazePOXIDE 5 MG CAPSULE PO SCH (23:00)
[2017-06-24] MEDS ORDERED: chlordiazePOXIDE HCL 10 MG CAPSULE PO SCH (23:00)
== END 2017-06-22 08:38 | disposition short-term general hospital (02) | DRG 775 ==
LOC: YASAS 18:51 → Y3N 20:47
PROVIDERS: ADMIT Internal Medicine; ATTEND Internal Medicine
PROC: HZ2ZZZZ Detoxification Services for Substance Abuse Treatment (ICD-10-PCS; principal; 2017-06-21)
DX: F10.230 Alcohol dependence with withdrawal, uncomplicated (principal); F17.210 Nicotine dependence, cigarettes, uncomplicated; F41.8 Other specified anxiety disorders; R94.31 Abnormal electrocardiogram [ECG] [EKG]; I48.92 Unspecified atrial flutter; I44.30 Unspecified atrioventricular block; R00.2 Palpitations; R06.02 Shortness of breath; Z86.69 Personal history of other diseases of the nervous system and sense organs
CPT/HCPCS: 81003; 81015; 93005; 93010

== ENCOUNTER 2017-06-22 02:02 | Inpatient (IN) | payer OTHER ==
[2017-06-22 02:17] VITALS: BMI 21.2
--- NOTE | 2017-06-22 02:20 | PDOC ---
Attending Attestation - Resident Resident Name: Hardy Loera - ED Attending Attestation I have performed the following: I have examined & evaluated the patient, The case was reviewed & discussed with the resident, I agree w/resident's findings & plan, Exceptions are as noted - HPI HPI: 06/22/17 02:16 Pt from [facility] with c/o generalized weakness. Pt with "abnormal EKG". Denies chest pain at this time. - Physicial Exam PE: 06/22/17 02:19 *Physical Exam General Appearance: Yes: Appropriately Dressed. No: Apparent Distress, Intoxicated HEENT: positive: EOMI, BORIS, Normal ENT Inspection, Normal Voice, TMs Normal, Pharynx Normal. negative: Pale Conjunctivae, Photophobia, Scleral Icterus (R), Scleral Icterus (L) Neck: positive: Trachea midline, Normal Thyroid, Supple. negative: Tender, Rigid, Carotid bruit, Stridor, Lymphadenopathy (R), Lymphadenopathy (L), Thyromegaly Respiratory/Chest: positive: Lungs Clear, Normal Breath Sounds. negative: Chest Tender, Respiratory Distress, Accessory Muscle Use, Labored Respiration, RES, Crackles, Rales, Rhonchi, Stridor, Wheezing, Dullness Cardiovascular: positive: Regular Rhythm, Regular Rate, S1, S2. negative: Edema , JVD, Murmur, Bradycardia, Tachycardia Vascular Pulses: Dorsalis-Pedis (R): 2+, Doralis-Pedis (L): 2+ Gastrointestinal/Abdominal: positive: Normal Bowel Sounds, Flat, Soft. negative : Tender, Organomegaly, Pulsatile Mass, Increased Bowel Sounds, Decreased BS, Distended, Guarding, Rebound, Hernia, Hepatomegaly, Spleenomegaly Lymphatic: negative: Adenopathy, Tenderness Musculoskeletal: positive: Normal Inspection. negative: CVA Tenderness, Decreased Range of Motion Extremity: positive: Normal Capillary Refill, Normal Inspection, Normal Range of Motion, Pelvis Stable. negative: Tender, Pedal Edema, Swelling, Erythema Integumentary: positive: Normal Color, Dry, Warm. negative: Cyanotic, Erythema , Jaundice, Rash Neurologic: positive: medicare biller II-XII NML intact, Fully Oriented, Alert, Normal Mood/ Affect, Motor Strength 5/5. negative: EOM Palsy, Facial Droop, Sensory Deficit - Medical Decision Making 06/22/17 19:42 Pt treated and released
[2017-06-22] MEDS ORDERED: ASPIRIN 325 MG TABLET ONE (02:45)
[2017-06-22] MEDS ORDERED: ASPIRIN 81 MG CHEWABLE TABLETS PO ONE (02:45)
--- NOTE | 2017-06-22 02:45 | PDOC ---
History of Present Illness - General Stated Complaint: ABNORMAL EKG Time Seen by Provider: 06/22/17 02:04 - History of Present Illness Initial Comments: 06/22/17 02:51 The patient is a 36 year old male with a history of alcohol abuse who presents from detox for evaluation of an abnormal EKG. The patient reports that he has been feeling some generalized weakness, but otherwise denies chest pain, SOB, nausea, vomiting, abdominal pain, or changes with urination or bowel movements. He reports that he is otherwise asymptomatic. Report from detox was an akg concerning for aflutter. Past History - Past Medical History Allergies/Adverse Reactions: Allergies Allergy/AdvReac Type Severity Reaction Status Date / Time No Known Allergies Allergy Verified 06/22/17 02:03 Home Medications: Ambulatory Orders Chlordiazepoxide [Librium -] 50 mg PO ASDIR 06/22/17 Anemia: No Asthma: No Cancer: No Cardiac Disorders: No CVA: No COPD: No CHF: No Dementia: No Diabetes: No GI Disorders: No Disorders: No HTN: No Hypercholesterolemia: No Kidney Stones: No Liver Disease: No Seizures: Yes (Etoh-related, 3 weeks ago) Thyroid Disease: No - Surgical History Abdominal Surgery: No Appendectomy: No Cardiac Surgery: No Cholecystectomy: No Lung Surgery: No Neurologic Surgery: No Orthopedic Surgery: No - Reproductive History Testicular Surgery: No - Suicide/Smoking/Psychosocial Hx Smoking History: Current every day smoker Have you smoked in the past 12 months: Yes Number of Cigarettes Smoked Daily: 15 Cigars Per Day: 0 Information on smoking cessation initiated: No 'Breaking Loose' booklet given: 06/21/17 Hx Alcohol Use: Yes Drug/Substance Use Hx: No Substance Use Type: Alcohol Hx Substance Use Treatment: Yes Review of Systems - Review of Systems Comments:: 06/22/17 02:53 Constitutional: Fatigue. No fevers, chills, malaise HEENT: No Rhinorrhea, nasal congestion, visual changes Cardiovascular: No chest pain, syncope, palpitations, lightheadedness Respiratory: No Cough, SOB, Hemoptysis, Gastrointestinal: No Abdominal pain, Nausea, Vomiting, Constipation, Diarrhea, Melena Genitourinary: No Dysuria, Frequency, Urgency, Hesitancy, Hematuria, Flank pain Musculoskeletal: No Myalgia, arthralgia Skin: No rashes, itching, bruising, pallor Neurologic: No Headache, Dizziness, Numbness, Weakness, or Tingling Psychiatric: No Hallucinations. No SI or HI *Physical Exam - Vital Signs Last Vital Signs Temp Pulse Resp BP Pulse Ox 99.1 F 94 H 18 123/75 96 06/22/17 02:13 06/22/17 02:13 06/22/17 02:13 06/22/17 02:13 06/22/17 02:13 - Physical Exam Comments: 06/22/17 02:53 General Appearance: Nourished. No Apparent Distress HEENT: EOMI, BORIS. No Pharyngeal Erythema, Tonsillar Exudate, Tonsillar Erythema Neck: No Cervical Lymphadenopathy Respiratory/Chest: Lungs Clear, Normal Breath Sounds. No Crackles, Rales, Rhonchi, Wheezing Cardiovascular: Regular Rhythm, Regular Rate. No Murmur, Gallops, Rubs Gastrointestinal/Abdominal: Normal Bowel Sounds, Soft. No Guarding, Rebound, Tenderness Musculoskeletal: No CVA Tenderness Extremity: Normal Capillary Refill Integumentary: Normal Color, Dry, Warm Neurologic: Fully Oriented, Alert, Normal Mood/Affect, Normal Response, Heart Score/ECG Review #1 ECG reviewed & interpreted by me at: 02:58 (New ST changes in leads v1-v3 when compared to EKG done 02/06/17) General ECG Interpretation: Sinus Rhythm, Normal Rate, Normal Intervals ED Treatment Course - LABORATORY CBC & Chemistry Diagram: 06/22/17 02:30 06/22/17 02:30 Medical Decision Making - Medical Decision Making 06/22/17 02:53 The patient is a 36 year old male with a history of alcohol abuse who presents from detox for evaluation of an abnormal EKG. Differential includes but is not limited to: ACS, arrhythmia, afib, aflutter, toxic metabolic derangement. The patient's EKG done here in the ED does not demonstrate aflutter, however it does demonstrates st elevation in v1-v3 that is new since his last ekg without any reciprocal depressions. Given his ekg changes we will obtain a cbc, cmp, troponin, ua, urine tox and chest plain film to evaluate for possible etiologies especially given that the patient is relatively asymptomatic. We will treat with aspirin and continue to monitor and reassess. 06/22/17 06:36 CBC, cmp, troponin are unremarkable. Chest plain film is unremarkable as preliminarily read by ER physician. Given the patient's abnormal EKG, we will repeat a troponin to ensure that it is negative. Patient continues to remain asymptomatic. 06/22/17 06:48 Patient signed out to day team pending repeat troponin, librium, and reassessment. *DC/Admit/Observation/Transfer Diagnosis at time of Disposition: Abnormal EKG - Discharge Dispostion Condition at time of disposition: Stable - Referrals - Patient Instructions - Post Discharge Activity
[2017-06-22 02:51] LABS: BASO % 0.6 % (0-2.0); EOS % 0.9 % (0-4.5); HEMATOCRIT 31.7 % (35.4-49); HEMOGLOBIN 10.6 GM/dL (11.7-16.9); LYMPH % 37.6 % (8-40); MCH 37.1 pg (25.7-33.7); MCHC 33.5 g/dl (32.0-35.9); MEAN PLT VOLUME 8.6 fl (7.5-11.1); NEUT % 51.9 % (42.8-82.8); PLATELET COUNT 80 K/MM3 (134-434); RBC 2.86 M/mm3 (4.00-5.60); RDW 17.9 % (11.9-15.9); WHITE BLOOD COUNT 4.5 K/mm3 (4.0-10.0)
[2017-06-22 03:16] LABS: ADD RBC MORPHOLOGY YES
[2017-06-22 03:17] LABS: ANISOCYTOSIS 1+; MACROCYTOSIS 2+; PLATELET ESTIMATE DECREASED
[2017-06-22 03:22] LABS: ALBUMIN 3.5 g/dl (3.4-5.0); ANION GAP 16 (8-16); BILIRUBIN,TOTAL 0.9 mg/dL (0.2-1.0); BLOOD UREA NITROGEN 10 mg/dL (7-18); CALCIUM 8.8 mg/dL (8.5-10.1); CHLORIDE 98 mmol/L (98-107); CO2 26 mmol/L (21-32); CREATININE 0.5 mg/dL (0.7-1.3); GLUCOSE,RANDOM 89 mg/dL (74-106); POTASSIUM 3.3 mmol/L (3.5-5.1); SGPT/ALT 152 U/L (12-78); SODIUM 140 mmol/L (136-145); TOT PROT 7.1 g/dl (6.4-8.2)
[2017-06-22 03:25] LABS: ALK PHOS 278 U/L (45-117)
[2017-06-22 03:35] LABS: SGOT/AST 469 U/L (15-37)
[2017-06-22] MEDS ORDERED: POTASSIUM CHLORIDE TABS 20 MEQ TABLET.ER (FP) PO ONE ×2 (04:00→04:31)
[2017-06-22] MEDS ORDERED: MAGNESIUM SULF 50% (8.12 MEQ/2 ML-1 GM VIAL) IVPB ONE ×2 (04:00→10:45)
[2017-06-22] MEDS ORDERED: MAGNESIUM SULF 50% (8.12 MEQ/2 ML-1 GM VIAL) ONE ×2 (04:10→10:38)
[2017-06-22] MEDS ORDERED: SODIUM CHLORIDE 0.9%/KCL 20 MEQ/1,000 ML INFUS.BAG IV ONE (04:34)
[2017-06-22] MEDS ORDERED: chlordiazePOXIDE HCL 25 MG CAPSULE PO ONE ×2 (06:43→13:36)
[2017-06-22] MEDS ORDERED: chlordiazePOXIDE HCL 25 MG CAPSULE ONE ×2 (06:46→17:22)
--- NOTE | 2017-06-22 09:17 | PDOC ---
*Physical Exam - Vital Signs Last Vital Signs Temp Pulse Resp BP Pulse Ox 98.9 F 73 18 115/74 99 06/22/17 08:05 06/22/17 08:05 06/22/17 08:05 06/22/17 08:05 06/22/17 08:05 - Physical Exam Comments: 06/22/17 09:16 GENERAL: Awake, alert, and fully oriented, in no acute distress HEAD: No signs of trauma, normocephalic, atraumatic EYES: PERRLA, EOMI, sclera anicteric, conjunctiva clear ENT: Auricles normal inspection, hearing grossly normal, nares patent, oropharynx clear without exudates. Moist mucosa EXTREMITIES: Normal inspection, Normal range of motion, no edema. No clubbing or cyanosis. NEUROLOGICAL: Cranial nerves II through XII grossly intact. Normal speech, normal gait, no focal sensorimotor deficits SKIN: Warm, Dry, normal turgor, no rashes or lesions noted. ED Treatment Course - LABORATORY CBC & Chemistry Diagram: 06/22/17 02:30 06/22/17 02:30 - ADDITIONAL ORDERS Additional order review: Laboratory Results 06/22/17 06/22/17 06/22/17 06:12 02:30 02:30 Sodium 140 Potassium 3.3 L Chloride 98 Carbon Dioxide 26 Anion Gap 16 BUN 10 D Creatinine 0.5 L Creat Clearance w eGFR > 60 Random Glucose 89 Calcium 8.8 Magnesium 1.5 L Total Bilirubin 0.9 D AST 469 H D ALT 152 H D Alkaline Phosphatase 278 H D Creatine Kinase 84 127 Troponin I < 0.02 < 0.02 Total Protein 7.1 Albumin 3.5 D 06/22/17 02:30 RBC 2.86 L MCV 111.0 H MCHC 33.5 RDW 17.9 H MPV 8.6 D Neutrophils % 51.9 Lymphocytes % 37.6 Monocytes % 9.0 Eosinophils % 0.9 Basophils % 0.6 - Medications Given in the ED: ED Medications Discontinued Medications Generic Name Dose Route Start Last Admin Trade Name Freq PRN Reason Stop Dose Admin Aspirin 324 mg 06/22/17 02:45 06/22/17 02:54 Asa - PO 06/22/17 02:46 324 mg ONCE ONE Administration Chlordiazepoxide HCl 25 mg 06/22/17 06:43 06/22/17 06:48 Librium - PO 06/22/17 06:44 25 mg ONCE ONE Administration Magnesium Sulfate 1 gm 06/22/17 04:00 06/22/17 04:23 Magnesium Sulfate IVPB 06/22/17 04:01 1 gm ONCE ONE Administration Potassium Chloride 40 meq 06/22/17 04:00 06/22/17 04:23 K-Dur - PO 06/22/17 04:01 40 meq ONCE ONE Administration Medical Decision Making - Medical Decision Making 06/22/17 09:17 36M with history of alcohol abuse here today with abnormal ekg. Patient discussed with Dr Tran, will evaluate patient. Admitted to tele obs via Elizabeth Murphy. *DC/Admit/Observation/Transfer Diagnosis at time of Disposition: Abnormal EKG - Discharge Dispostion Condition at time of disposition: Stable Admit: Yes Decision to Admit order Date/Time: Decision to Admit Order Category Date Time Status Decision to Admit to Hospital Routine Admission 06/22/17 09:13 Active - Referrals - Patient Instructions - Post Discharge Activity
[2017-06-22] MEDS ORDERED: HEPARIN NA (PORCINE) 5,000 UNITS/ML 1ML VIAL ONE ×2 (10:38→14:01)
[2017-06-22] MEDS: HEPARIN NA (PORCINE) 5,000 UNITS/ML 1ML VIAL SQ SCH ×3 (10:50→22:05)
--- NOTE | 2017-06-22 13:02 | EKG ---
Test Reason : Blood Pressure : / mmHG Vent. Rate : 091 BPM Atrial Rate : 091 BPM P-R Int : 114 ms QRS Dur : 104 ms QT Int : 406 ms P-R-T Axes : 052 042 042 degrees QTc Int : 499 ms POOR DATA QUALITY, INTERPRETATION MAY BE ADVERSELY AFFECTED NORMAL SINUS RHYTHM ST ELEVATION CONSIDER ANTERIOR INJURY OR ACUTE INFARCT VS ARTIFACT PROLONGED QT ABNORMAL ECG Confirmed by TYLER SANCHEZ MD ([id number]) on 06/22/2017 1:02:01 PM Referred By: Confirmed By:TYLER SANCHEZ MD
--- NOTE | 2017-06-22 13:02 | EKG ---
Test Reason : Blood Pressure : / mmHG Vent. Rate : 094 BPM Atrial Rate : 094 BPM P-R Int : 112 ms QRS Dur : 120 ms QT Int : 378 ms P-R-T Axes : 040 031 033 degrees QTc Int : 472 ms POOR DATA QUALITY, INTERPRETATION MAY BE ADVERSELY AFFECTED NORMAL SINUS RHYTHM NON-SPECIFIC INTRA-VENTRICULAR CONDUCTION DELAY BORDERLINE ECG Confirmed by TYLER SANCHEZ MD ([id number]) on 06/22/2017 1:02:31 PM Referred By: Confirmed By:TYLER SANCHEZ MD
[2017-06-22] MEDS ORDERED: chlordiazePOXIDE HCL 25 MG CAPSULE PO PRN (13:36)
[2017-06-22 14:13] LABS: URINE APPEARANCE SLCLOUDY; URINE BILIRUBIN NEGATIVE (NEGATIVE); URINE BLOOD NEGATIVE (NEGATIVE); URINE COLOR YELLOW; URINE GLUCOSE (UA) NEGATIVE (NEGATIVE); URINE KETONE NEGATIVE (NEGATIVE); URINE LEUK ESTERASE NEGATIVE (NEGATIVE); URINE NITRITE NEGATIVE (NEGATIVE); URINE PROTEIN NEGATIVE (NEGATIVE); URINE UROBILINOGEN 4.0 E.U/dl mg/dL (0.2-1.0)
--- NOTE | 2017-06-22 14:28 | HP ---
CHIEF COMPLAINT: PCP: HISTORY OF PRESENT ILLNESS: 36 year-old homeless male with a PMH significant for ETOH abuse since age 17 and a h/o of two withdrawal seizures this year, the most recent seizure was 3 weeks ago. Patient was seen at a hospital after each seizure but was not prescribed medication. Yesterday patient picked up the van from [place] to go to [facility] for detox. During the [facility] screening process, it is reported patient had an abnormal ECG. Patient was transported by EMS to the ED. Patient complains of right-sided chest pain which started last week. He describes the pain as sharp, intermittent, lasting only a few seconds. There are no provoking or relieving factors. Patient reports feeling sweaty and jittery and believes he is withdrawing from alcohol. Patient denies fever, sweats, chills. Denies nausea, vomiting, diarrhea, or urinary tract symptoms. Denies palpitations, SOB , PRIETO, orthopnea, lower extremity edema. Has been seen in hospitals at least twice this year and has never been told he has a cardiac problem. Denies h/o GI bleeding. (1) K 3.3, Mg 1.5 (2) AST/ALT/Alk phos 469/152/278 Recent Travel: No PAST MEDICAL HISTORY: ETOH abuse PAST SURGICAL HISTORY: Social History: lives in a penitentiary in [place] Smoking: current every day Alcohol: daily Drugs: denies Family History: father CAD s/p MA s/p stents to heart and legs in 50s; mother a& w; siblings a&w; children a&w; no family history of sudden cardiac Allergies No Known Allergies Allergy (Verified 06/22/17 02:03) HOME MEDICATIONS: Home Medications Medication Instructions Recorded Chlordiazepoxide [Librium -] 50 mg PO ASDIR 06/22/17 REVIEW OF SYSTEMS CONSTITUTIONAL: Present: jitters, diaphoresis Absent: fever, chills, diaphoresis, generalized weakness, malaise, loss of appetite, weight change HEENT: Absent: rhinorrhea, nasal congestion, throat pain, throat swelling, difficulty swallowing, mouth swelling, ear pain, eye pain, visual changes CARDIOVASCULAR: Present: sharp, intermittent right-sided chest pain x 1 week Absent: chest pain, syncope, palpitations, irregular heart rate, lightheadedness , peripheral edema RESPIRATORY: Absent: cough, shortness of breath, dyspnea with exertion, orthopnea, wheezing, stridor, hemoptysis GASTROINTESTINAL: Absent: abdominal pain, abdominal distension, nausea, vomiting, diarrhea, constipation, melena, hematochezia GENITOURINARY: Absent: dysuria, frequency, urgency, hesitancy, hematuria, flank pain, genital pain MUSCULOSKELETAL: Absent: myalgia, arthralgia, joint swelling, back pain, neck pain SKIN: Absent: rash, itching, pallor HEMATOLOGIC/IMMUNOLOGIC: Absent: easy bleeding, easy bruising, lymphadenopathy, frequent infections ENDOCRINE: Absent: unexplained weight gain, unexplained weight loss, heat intolerance, cold intolerance NEUROLOGIC: Absent: headache, focal weakness or paresthesias, dizziness, unsteady gait, seizure, mental status changes, bladder or bowel incontinence PSYCHIATRIC: Absent: anxiety, depression, suicidal or homicidal ideation, hallucinations. PHYSICAL EXAMINATION Vital Signs - 24 hr 06/22/17 06/22/17 06/22/17 02:13 04:09 08:05 Temperature 99.1 F 98.9 F Pulse Rate 94 H Pulse Rate [ 84 73 Apical] Respiratory 18 18 18 Rate Blood Pressure 123/75 Blood Pressure 120/84 115/74 [Left Arm] O2 Sat by Pulse 96 98 99 Oximetry (%) 06/22/17 12:54 Temperature 98.5 F Pulse Rate Pulse Rate [ 81 Apical] Respiratory 17 Rate Blood Pressure Blood Pressure 129/76 [Left Arm] O2 Sat by Pulse 99 Oximetry (%) GENERAL: Awake, alert, and fully oriented. Jittery, anxious. HEAD: Normal with no signs of trauma. EYES: Pupils equal, round and reactive to light, extraocular movements intact, sclera anicteric with injected appearance, conjunctiva clear. No lid lag. EARS, NOSE, THROAT: Ears normal, nares patent, oropharynx clear without exudates. Moist mucous membranes. NECK: Normal range of motion, supple without lymphadenopathy, JVD, or masses. LUNGS: Breath sounds equal, clear to auscultation bilaterally. No wheezes, and no crackles. No accessory muscle use. HEART: Regular rate and rhythm, normal S1 and S2 without murmur, rub or gallop. ABDOMEN: Soft, +tenderness LLQ and mid-lower abdomen, normoactive bowel sounds, no guarding, no rebound, no masses. MUSCULOSKELETAL: Normal range of motion at all joints. No bony deformities or tenderness. No CVA tenderness. UPPER EXTREMITIES: 2+ pulses, warm, well-perfused. No cyanosis. No clubbing. No peripheral edema. LOWER EXTREMITIES: 2+ pulses, warm, well-perfused. No calf tenderness. No peripheral edema. NEUROLOGICAL: Cranial nerves II-XII intact. Normal speech. Normal gait. PSYCHIATRIC: Cooperative. Good eye contact. Appropriate mood and affect. Laboratory Results - last 24 hr 06/22/17 06/22/17 06/22/17 02:30 02:30 02:30 WBC 4.5 D RBC 2.86 L Hgb 10.6 L Hct 31.7 L MCV 111.0 H MCH 37.1 H MCHC 33.5 RDW 17.9 H Plt Count 80 L D MPV 8.6 D Neutrophils % 51.9 Lymphocytes % 37.6 Monocytes % 9.0 Eosinophils % 0.9 Basophils % 0.6 Platelet Estimate Decreased Anisocytosis 1+ Macrocytosis 2+ Sodium 140 Potassium 3.3 L Chloride 98 Carbon Dioxide 26 Anion Gap 16 BUN 10 D Creatinine 0.5 L Creat Clearance w eGFR > 60 Random Glucose 89 Calcium 8.8 Magnesium 1.5 L Total Bilirubin 0.9 D AST 469 H D ALT 152 H D Alkaline Phosphatase 278 H D Creatine Kinase 127 Troponin I < 0.02 Total Protein 7.1 Albumin 3.5 D 06/22/17 06/22/17 06:12 12:45 WBC RBC Hgb Hct MCV MCH MCHC RDW Plt Count MPV Neutrophils % Lymphocytes % Monocytes % Eosinophils % Basophils % Platelet Estimate Anisocytosis Macrocytosis Sodium Potassium Chloride Carbon Dioxide Anion Gap BUN Creatinine Creat Clearance w eGFR Random Glucose Calcium Magnesium Total Bilirubin AST ALT Alkaline Phosphatase Creatine Kinase 84 Troponin I < 0.02 < 0.02 Total Protein Albumin ASSESSMENT/PLAN 36 year-old male with a PMH significant for ETOH abuse and withdrawal seizures. Admitted for acute ETOH withdrawal, right-sided chest pain, and ECG abnormalities ETOH withdrawal --librium taper --ativan PRN for seizure activity Abdominal pain --LLQ and mid abdominal tenderness on exam --CTAP with PO and IV contrast Right-sided rib pain --started after seizure ~ 3 weeks ago when patient fell to ground; was seen and evaluated at a local ED but not sure if xrays were done --right rib series ordered Hypokalemia Hypomagnesemia --repleted --repeat bmp 7:00pm Right-sided chest pain --two troponins negative, third pending --CXR unremarkable --cardiology consult Dr. Cooper pending FEN Fluids: vitamin bag ordered; then NS @ 100mL/hr Electrolytes: replete as indicated Nutrition: NPO pending CT DVT prophylaxis: subq heparin Dispo: continues to require inpatient care. Full code. Visit type - Emergency Visit Emergency Visit: Yes ED Registration Date: 06/22/17 Care time: The patient presented to the Emergency Department on the above date and was hospitalized for further evaluation of their emergent condition. - New Patient This patient is new to me today: Yes Date on this admission: 06/22/17 - Critical Care Critical Care patient: No
[2017-06-22 14:36] LABS: COCAINE, UR NEGATIVE ng/ml (CUTOFF=300); METHADONE, UR NEGATIVE ng/ml (CUTOFF=300); OPIATES, URI NEGATIVE ng/ml (CUTOFF=300); PHENCYCLIDINE,URINE NEGATIVE ng/ml (CUTOFF=25); URINE AMPHETAMINES NEGATIVE ng/ml (CUTOFF=500); URINE BARBITURATES NEGATIVE ng/ml (CUTOFF=200)
[2017-06-22 14:55] LABS: URINE BENZODIAZEPINES POSITIVE ng/ml (CUTOFF=200)
[2017-06-22] MEDS ORDERED: FOLIC ACID INJECTION - 1 MG, THIAMINE HCL 100 MG, MULTIVIT INJECTION ADULT 10 ML in SOD... IVPB ONE (15:33)
--- NOTE | 2017-06-22 17:00 | CON.CARD ---
Cardiology Consult (text) - Consultation Consultation Note: CC: abnormal ekg. 36 year-old homeless male smoker with a PMH significant for ETOH abuse, h/o of two withdrawal seizures this year (most recent seizure was 3 weeks ago), depression/bipolar disorder who presents from detox because of abnormal ekg. During the [facility] screening process, patient noted to have an abnormal ECG. Patient was transported by EMS to the ED. Patient endorsed CP to nursing here. However, he elaborates that he has chronic intermittent sharp shooting pains at various locations in his chest that are fleeting/last a few seconds. In ER he had episode that lasted a few seconds, similar to prior discomfort. States location is always changing and has had such sensations for years. non-exertional. lytes repleted in ER. Patient denies fever, chills. Denies nausea, vomiting, diarrhea, or urinary tract symptoms. Denies palpitations, SOB, PRIETO, orthopnea, lower extremity edema. pmhx/pshx: per [facility] social hx: lives in a long-term in [place], drinks 12 Beers, 1-2 pints Vodka daily, + tob fam hx: etoh abuse, no cardiac hx ros: per [facility] Ambulatory Orders Chlordiazepoxide [Librium -] 50 mg PO ASDIR 06/22/17 Current Medications Chlordiazepoxide HCl (Librium -) 50 mg PO [id number] [facility] Stop: 06/23/17 11:01 Chlordiazepoxide HCl (Librium -) 25 mg PO [id number] [facility] Stop: 06/24/17 11:01 Chlordiazepoxide HCl (Librium -) 15 mg PO [id number] [facility] Stop: 06/25/17 11:01 Chlordiazepoxide HCl (Librium -) 25 mg PO Q4H PRN PRN Reason: WITHDRAWAL(CONT SUBST) Stop: 06/25/17 13:35 Folic Acid (Folic Acid -) 1 mg PO DAILY [facility] Heparin Sodium (Porcine) (Heparin -) 5,000 unit SQ TID [facility] Last Admin: 06/22/17 14:05 Dose: Not Given Folic Acid 1 mg/ Thiamine HCl 100 mg/ Multivitamins/Minerals 10 ml/ Sodium Chloride 1,000 mls @ 125 mls/hr IVPB ONCE ONE Stop: 06/22/17 23:32 Last Admin: 06/22/17 16:05 Dose: 125 mls/hr Lorazepam (Ativan Injection -) 2 mg IVPUSH ONCE PRN PRN Reason: ANXIETY Stop: 06/23/17 14:12 Thiamine HCl (Vitamin B1 -) 100 mg PO DAILY CHARLI Vital Signs - 24 hr 06/22/17 06/22/17 06/22/17 02:13 04:09 08:05 Temperature 99.1 F 98.9 F Pulse Rate 94 H Pulse Rate [ 84 73 Apical] Respiratory 18 18 18 Rate Blood Pressure 123/75 Blood Pressure 120/84 115/74 [Left Arm] O2 Sat by Pulse 96 98 99 Oximetry (%) 06/22/17 06/22/17 12:54 15:05 Temperature 98.5 F Pulse Rate Pulse Rate [ 81 Apical] Respiratory 17 Rate Blood Pressure Blood Pressure 129/76 [Left Arm] O2 Sat by Pulse 99 97 Oximetry (%) NAD, calm JVD flat, neck supple rrr nl s1, s2 no mrg. nd pmi ctab, nl effort + bs soft nt nd ext without e/c/c + dp/pt aaox3 no carotid bruits no jaundice, diaphoresis CBC, BMP 06/22/17 02:30 06/22/17 02:30 Laboratory Tests 06/22/17 06/22/17 06/22/17 02:30 02:30 06:12 Magnesium 1.5 L Total Bilirubin 0.9 D AST 469 H D ALT 152 H D Alkaline Phosphatase 278 H D Creatine Kinase 127 84 Troponin I < 0.02 < 0.02 Albumin 3.5 D 06/22/17 12:45 Magnesium Total Bilirubin AST ALT Alkaline Phosphatase Creatine Kinase Troponin I < 0.02 Albumin initial ekg: poor baseline, artifact. possible prolonged qt repeat ekg: nsr. artifact in V1 and V2/J point elevation. nl intervals. no ischemic changes. tele: SR echo: wnl, final report pending cxr wnl ct scan pending 36 year-old homeless male smoker with a PMH significant for ETOH abuse, h/o of two withdrawal seizures this year (most recent seizure was 3 weeks ago), depression/bipolar disorder who presents from detox because of abnormal ekg. abnormal ekg - anterior william related to baseline artifact and j point elevation. No abnormal pathology. - tele and echo wnl prolonged qtc - improved with lyte repletion - con't to monitor and replete K/mg during detox. avoid qt prolonging drugs etoh/tob - cessation counseling. stable for d/c to detox from CV perspective. Ongoing lyte mgm't in detox as mentioned above.
[2017-06-22] MEDS: chlordiazePOXIDE HCL 25 MG CAPSULE PO SCH ×2 (17:40→22:04)
[2017-06-23] MEDS: chlordiazePOXIDE HCL 25 MG CAPSULE PO SCH ×4 (05:01→22:01)
[2017-06-23] MEDS: HEPARIN NA (PORCINE) 5,000 UNITS/ML 1ML VIAL SQ SCH ×3 (05:02→21:54)
[2017-06-23 06:40] LABS: BASO % 0.4 % (0-2.0); EOS % 2.3 % (0-4.5); HEMATOCRIT 28.8 % (35.4-49); HEMOGLOBIN 9.6 GM/dL (11.7-16.9); MCH 37.2 pg (25.7-33.7); MCHC 33.4 g/dl (32.0-35.9); MEAN CELL VOLUME 111.4 fl (80-96); MEAN PLT VOLUME 8.9 fl (7.5-11.1); MONO % 7.7 % (3.8-10.2); NEUT % 56.6 % (42.8-82.8); PLATELET COUNT 59 K/MM3 (134-434); RBC 2.58 M/mm3 (4.00-5.60); RDW 16.7 % (11.9-15.9); WHITE BLOOD COUNT 4.6 K/mm3 (4.0-10.0)
--- NOTE | 2017-06-23 07:42 | EKG ---
Test Reason : Blood Pressure : / mmHG Vent. Rate : 066 BPM Atrial Rate : 066 BPM P-R Int : 132 ms QRS Dur : 102 ms QT Int : 436 ms P-R-T Axes : 049 033 034 degrees QTc Int : 457 ms NORMAL SINUS RHYTHM NORMAL ECG WHEN COMPARED WITH ECG OF 22-JUN-2017 06:17, ST NO LONGER ELEVATED IN ANTERIOR LEADS Confirmed by TYLER SANCHEZ MD ([id number]) on 06/22/2017 2:50:14 PM Referred By: Confirmed By:TYLER SANCHEZ MD
[2017-06-23 08:11] LABS: CHLORIDE 103 mmol/L (98-107); POTASSIUM 3.4 mmol/L (3.5-5.1); SODIUM 140 mmol/L (136-145)
[2017-06-23 08:17] LABS: ALBUMIN 3.1 g/dl (3.4-5.0); ALK PHOS 252 U/L (45-117); ANION GAP 12 (8-16); BLOOD UREA NITROGEN 5 mg/dL (7-18); CALCIUM 8.7 mg/dL (8.5-10.1); CO2 25 mmol/L (21-32); CREATININE 0.4 mg/dL (0.7-1.3); GLUCOSE,RANDOM 89 mg/dL (74-106); MAGNESIUM 2.2 mg/dL (1.8-2.4); SGPT/ALT 140 U/L (12-78); TOT PROT 6.2 g/dl (6.4-8.2)
[2017-06-23 08:19] LABS: SGOT/AST 442 U/L (15-37)
[2017-06-23] MEDS: FOLIC ACID 1 MG TABLET (FP) PO SCH (09:40)
[2017-06-23] MEDS: POTASSIUM CHLORIDE TABS 20 MEQ TABLET.ER (FP) PO SCH ×2 (09:40→14:26)
[2017-06-23] MEDS: THIAMINE HCL 100 MG TABLET (FP) PO SCH (09:40)
--- NOTE | 2017-06-23 09:46 | EKG ---
Test Reason : Blood Pressure : / mmHG Vent. Rate : 051 BPM Atrial Rate : 051 BPM P-R Int : 136 ms QRS Dur : 096 ms QT Int : 454 ms P-R-T Axes : 017 043 046 degrees QTc Int : 418 ms SINUS BRADYCARDIA INCOMPLETE RIGHT BUNDLE BRANCH BLOCK WHEN COMPARED WITH ECG OF 22-JUN-2017 13:26, NO SIGNIFICANT CHANGE WAS FOUND Confirmed by DALLIN AGUILAR MD ([id number]) on 06/23/2017 9:45:48 AM Referred By: Confirmed By:DALLIN AGUILAR MD
--- NOTE | 2017-06-23 12:38 | PN ---
Progress Note (short form) - Note Progress Note: s: no cp sob palps dizzy o: Vital Signs Period Temp Pulse Resp BP Sys/Jackson Pulse Ox Last 24 Hr 98.1 F-99.0 F 62-94 16-20 104-134/59-78 97-100 NAD, calm JVD flat rrr nl s1, s2 no mrg. nd pmi ctab, nl effort ext without e/c/c aaox3 no jaundice, diaphoresis Current Medications Generic Name Dose Route Start Last Admin Trade Name Freq PRN Reason Stop Dose Admin Chlordiazepoxide HCl 25 mg 06/23/17 17:00 Librium - PO 06/24/17 11:01 [id number] CHARLI Chlordiazepoxide HCl 15 mg 06/24/17 17:00 Librium - PO 06/25/17 11:01 [id number] CHARLI Chlordiazepoxide HCl 25 mg 06/22/17 13:36 Librium - PO 06/25/17 13:35 Q4H PRN WITHDRAWAL(CONT SUBST) Folic Acid 1 mg 06/23/17 10:00 06/23/17 09:40 Folic Acid - PO 1 mg DAILY CHARLI Administration Heparin Sodium (Porcine) 5,000 unit 06/22/17 10:00 06/23/17 05:02 Heparin - SQ 5,000 unit TID CHARLI Administration Lorazepam 2 mg 06/22/17 14:13 Ativan Injection - IVPUSH 06/23/17 14:12 ONCE PRN ANXIETY Potassium Chloride 40 meq 06/23/17 09:15 06/23/17 09:40 K-Dur - PO 06/23/17 15:16 40 meq [id number],1515 CHARLI Administration Thiamine HCl 100 mg 06/23/17 10:00 06/23/17 09:40 Vitamin B1 - PO 100 mg DAILY CHARLI Administration CBC, BMP 06/23/17 06:20 06/23/17 06:20 initial ekg: poor baseline, artifact. possible prolonged qt repeat ekg: nsr. artifact in V1 and V2/J point elevation. nl intervals. no ischemic changes. tele: SR/SB echo 05/2017: nl lv/rv, no sig valve path cxr wnl a/p: 36 year-old homeless male smoker with a PMH significant for ETOH abuse, h/o of two withdrawal seizures this year (most recent seizure was 3 weeks ago), depression/bipolar disorder who presents from detox because of abnormal ekg. abnormal ekg - anterior william related to baseline artifact and j point elevation. No abnormal pathology. - tele and echo benign prolonged qtc - improved with lyte repletion - con't to monitor and replete K/mg during detox. avoid qt prolonging drugs etoh/tob - cessation counseling. stable for d/c to detox from CV perspective. Ongoing lyte mgm't in detox as mentioned above.
--- NOTE | 2017-06-23 12:43 | CON.GI ---
Consult Consult Specialty:: GI - History of Present Illness History of Present Illness: Chart reviewed. Per initial encounter: 36 year-old homeless male with a PMH significant for ETOH abuse since age 17 and a h/o of two withdrawal seizures this year, the most recent seizure was 3 weeks ago. Patient was seen at a hospital after each seizure but was not prescribed medication. Yesterday patient picked up the van from [place] to go to [facility] for detox. During the [facility] screening process, it is reported patient had an abnormal ECG. Patient was transported by EMS to the ED. Patient complains of right-sided chest pain which started last week. He describes the pain as sharp, intermittent, lasting only a few seconds. There are no provoking or relieving factors. Patient reports feeling sweaty and jittery and believes he is withdrawing from alcohol. Patient denies fever, sweats, chills. Denies nausea, vomiting, diarrhea, or urinary tract symptoms. Denies palpitations, SOB, PRIETO, orthopnea, lower extremity edema. Has been seen in hospitals at least twice this year and has never been told he has a cardiac problem. Denies h/o GI bleeding. The patient was found to have LLQ tenderness on initial exam and a CT A/P w/o showed a "structure adjasent to proximal duodenum. Also has elevated liver enzymes, and ALP. At the time of this encounter, the patient offers no complaints. Wants to eat. Cannot provide coherent history however reports no know problems with liver. - History Source History Provided By: Patient, Medical Record - Past Medical History Gastrointestinal: No: Ascites, Diverticulosis, Esophageal Varices, GERD, GI Bleed, Inflamatory Bowel Disease, Peptic Ulcer Disease - Alcohol/Substance Use Hx Alcohol Use: Yes - Smoking History Smoking history: Current every day smoker Have you smoked in the past 12 months: Yes Aproximately how many cigarettes per day: 15 Home Medications - Allergies Allergies/Adverse Reactions: Allergies Allergy/AdvReac Type Severity Reaction Status Date / Time No Known Allergies Allergy Verified 06/22/17 02:03 - Home Medications Home Medications: Ambulatory Orders Chlordiazepoxide [Librium -] 50 mg PO ASDIR 06/22/17 Family Disease History - Family Disease History Family History: Unremarkable (non-contributory) Family Disease History: Respiratory: Father (alcohol), Mother (alcohol, ) Review of Systems Findings/Remarks: please refer to H&P Physical Exam-GI Vital Signs: Vital Signs Temperature 98.1 F 06/23/17 08:00 Pulse Rate 94 H 06/23/17 08:00 Respiratory Rate 20 06/23/17 08:00 Blood Pressure 129/59 06/23/17 08:00 O2 Sat by Pulse Oximetry (%) 98 06/23/17 08:00 Constitutional: Yes: No Distress, Calm Eyes: Yes: Conjunctiva Clear HENT: Yes: Atraumatic Neck: Yes: Supple Cardiovascular: Yes: Regular Rate and Rhythm Respiratory: Yes: Regular ...Auscultate: Yes: Normoactive Bowel Sounds ...Palpate: Yes: Soft. No: Firm/Rigid, Guarding, Mass, Pulsatile Mass, Tenderness, Tenderness, Epigastium, Tenderness, Rebound Neurological: Yes: Alert, Oriented Labs: CBC, BMP 06/23/17 06:20 06/23/17 06:20 Laboratory Tests 06/22/17 06/22/17 06/22/17 02:30 02:30 02:30 WBC 4.5 D RBC 2.86 L Hgb 10.6 L Hct 31.7 L MCV 111.0 H MCH 37.1 H MCHC 33.5 RDW 17.9 H Plt Count 80 L D MPV 8.6 D Neutrophils % 51.9 Lymphocytes % 37.6 Monocytes % 9.0 Eosinophils % 0.9 Basophils % 0.6 Platelet Estimate Decreased Anisocytosis 1+ Macrocytosis 2+ Sodium 140 Potassium 3.3 L Chloride 98 Carbon Dioxide 26 Anion Gap 16 BUN 10 D Creatinine 0.5 L Creat Clearance w eGFR > 60 Random Glucose 89 Calcium 8.8 Magnesium 1.5 L Total Bilirubin 0.9 D AST 469 H D ALT 152 H D Alkaline Phosphatase 278 H D Creatine Kinase 127 Troponin I < 0.02 Total Protein 7.1 Albumin 3.5 D Urine Color Urine Appearance Urine pH Ur Specific [place] Urine Protein Urine Glucose (UA) Urine Ketones Urine Blood Urine Nitrite Urine Bilirubin Urine Urobilinogen Ur Leukocyte Esterase Opiates Screen Methadone Screen Barbiturate Screen Phencyclidine Screen Ur Amphetamines Screen MDMA (Ecstasy) Screen Benzodiazepines Screen Cocaine Screen U Marijuana (THC) Screen 06/22/17 06/22/17 06/22/17 06:12 12:45 13:30 WBC RBC Hgb Hct MCV MCH MCHC RDW Plt Count MPV Neutrophils % Lymphocytes % Monocytes % Eosinophils % Basophils % Platelet Estimate Anisocytosis Macrocytosis Sodium Potassium Chloride Carbon Dioxide Anion Gap BUN Creatinine Creat Clearance w eGFR Random Glucose Calcium Magnesium Total Bilirubin AST ALT Alkaline Phosphatase Creatine Kinase 84 Troponin I < 0.02 < 0.02 Total Protein Albumin Urine Color Yellow Urine Appearance Slcloudy Urine pH 7.0 Ur Specific [place] 1.006 Urine Protein Negative Urine Glucose (UA) Negative Urine Ketones Negative Urine Blood Negative Urine Nitrite Negative Urine Bilirubin Negative Urine Urobilinogen 4.0 e.u/dl Ur Leukocyte Esterase Negative Opiates Screen Methadone Screen Barbiturate Screen Phencyclidine Screen Ur Amphetamines Screen MDMA (Ecstasy) Screen Benzodiazepines Screen Cocaine Screen U Marijuana (THC) Screen 06/22/17 06/23/17 06/23/17 13:30 06:20 06:20 WBC 4.6 RBC 2.58 L Hgb 9.6 L Hct 28.8 L MCV 111.4 H MCH 37.2 H MCHC 33.4 RDW 16.7 H Plt Count 59 L D MPV 8.9 Neutrophils % 56.6 Lymphocytes % 33.0 Monocytes % 7.7 Eosinophils % 2.3 D Basophils % 0.4 Platelet Estimate Anisocytosis Macrocytosis Sodium 140 Potassium 3.4 L Chloride 103 Carbon Dioxide 25 Anion Gap 12 BUN 5 L D Creatinine 0.4 L Creat Clearance w eGFR > 60 Random Glucose 89 Calcium 8.7 Magnesium 2.2 D Total Bilirubin 2.0 H D AST 442 H ALT 140 H Alkaline Phosphatase 252 H Creatine Kinase Troponin I Total Protein 6.2 L Albumin 3.1 L Urine Color Urine Appearance Urine pH Ur Specific [place] Urine Protein Urine Glucose (UA) Urine Ketones Urine Blood Urine Nitrite Urine Bilirubin Urine Urobilinogen Ur Leukocyte Esterase Opiates Screen Negative Methadone Screen Negative Barbiturate Screen Negative Phencyclidine Screen Negative Ur Amphetamines Screen Negative MDMA (Ecstasy) Screen Negative Benzodiazepines Screen Positive Cocaine Screen Negative U Marijuana (THC) Screen Negative Imaging - Results Cat Scan: Report Reviewed Problem List - Problems (1) Abnormal CT of the abdomen Code(s): R93.5 - ABN FINDINGS ON DX IMAGING OF ABD REGIONS, INC RETROPERITON (2) Elevated liver enzymes Code(s): R74.8 - ABNORMAL LEVELS OF OTHER SERUM ENZYMES (3) Alcohol dependence with uncomplicated withdrawal Code(s): F10.230 - ALCOHOL DEPENDENCE WITH WITHDRAWAL, UNCOMPLICATED Assessment/Plan AST predominant with cholestasis liver enzymes patern, thrombocytopenia, High MCV and history of alcohol use. All this could represent underlying liver cirrhosis and or ongoing alcohol abuse. A CT scan showed a "fluid structure" near biliary tree. No obvious pancreaticobiliary abnormalities noted otherwise Outpatient liver work up to r/o autoimmune, metabolic liver abnormalities MRCP to access CT findings Iron, B12, Folate, Iron, Viral hepatitis Discussed with the patient will follow
--- NOTE | 2017-06-23 17:35 | PN ---
Physical Exam: SUBJECTIVE: Patient seen and examined OBJECTIVE: Vital Signs Period Temp Pulse Resp BP Sys/Jackson Pulse Ox Last 24 Hr 98.1 F-98.6 F 60-94 16-20 104-134/59-78 98-100 GENERAL: Awake, alert, and fully oriented. Calmer. LUNGS: Breath sounds equal, clear to auscultation bilaterally. No wheezes, and no crackles. No accessory muscle use. HEART: Regular rate and rhythm, normal S1 and S2 without murmur, rub or gallop. ABDOMEN: Soft, +tenderness LLQ and mid-lower abdomen, normoactive bowel sounds, no guarding, no rebound, no masses. MUSCULOSKELETAL: Normal range of motion at all joints. No bony deformities or tenderness. No CVA tenderness. UPPER EXTREMITIES: 2+ pulses, warm, well-perfused. No cyanosis. No clubbing. No peripheral edema. LOWER EXTREMITIES: 2+ pulses, warm, well-perfused. No calf tenderness. No peripheral edema. Laboratory Results - last 24 hr 06/22/17 06/23/17 06/23/17 13:30 06:20 06:20 WBC 4.6 RBC 2.58 L Hgb 9.6 L Hct 28.8 L MCV 111.4 H MCH 37.2 H MCHC 33.4 RDW 16.7 H Plt Count 59 L D MPV 8.9 Neutrophils % 56.6 Lymphocytes % 33.0 Monocytes % 7.7 Eosinophils % 2.3 D Basophils % 0.4 Sodium 140 Potassium 3.4 L Chloride 103 Carbon Dioxide 25 Anion Gap 12 BUN 5 L D Creatinine 0.4 L Creat Clearance w eGFR > 60 Random Glucose 89 Calcium 8.7 Magnesium 2.2 D Total Bilirubin 2.0 H D AST 442 H ALT 140 H Alkaline Phosphatase 252 H Total Protein 6.2 L Albumin 3.1 L Vitamin B12 Serum Folate Ur Leukocyte Esterase Negative 06/23/17 13:40 WBC RBC Hgb Hct MCV MCH MCHC RDW Plt Count MPV Neutrophils % Lymphocytes % Monocytes % Eosinophils % Basophils % Sodium Potassium Chloride Carbon Dioxide Anion Gap BUN Creatinine Creat Clearance w eGFR Random Glucose Calcium Magnesium Total Bilirubin AST ALT Alkaline Phosphatase Total Protein Albumin Vitamin B12 1084 H Serum Folate 38 H Ur Leukocyte Esterase Active Medications Generic Name Dose Route Start Last Admin Trade Name Freq PRN Reason Stop Dose Admin Chlordiazepoxide HCl 25 mg 06/23/17 17:00 Librium - PO 06/24/17 11:01 [id number] CHARLI Chlordiazepoxide HCl 15 mg 06/24/17 17:00 Librium - PO 06/25/17 11:01 [id number] CHARLI Chlordiazepoxide HCl 25 mg 06/22/17 13:36 Librium - PO 06/25/17 13:35 Q4H PRN WITHDRAWAL(CONT SUBST) Folic Acid 1 mg 06/23/17 10:00 06/23/17 09:40 Folic Acid - PO 1 mg DAILY CHARLI Administration Heparin Sodium (Porcine) 5,000 unit 06/22/17 10:00 06/23/17 14:26 Heparin - SQ 5,000 unit TID CHARLI Administration Thiamine HCl 100 mg 06/23/17 10:00 06/23/17 09:40 Vitamin B1 - PO 100 mg DAILY CHARLI Administration ASSESSMENT/PLAN 36 year-old male with a PMH significant for ETOH abuse and withdrawal seizures. Admitted for acute ETOH withdrawal, right-sided chest pain, and ECG abnormalities ETOH withdrawal --librium taper --ativan PRN for seizure activity Abdominal pain --per Dr. Reinoso: AST predominant with cholestasis liver enzyme pattern, thrombocytopenia, high MCV and h/o alcohol abuse all could represent underlying liver cirrhosis and ongoing alcohol abuse --CTAP: "fluid structure" near biliary tree; no other obvious pancreaticoobiliary abnormalities --MRCP ordered --Iron, folate, hepatitis studies pending Right-sided rib pain --started after seizure ~ 3 weeks ago when patient fell to ground; was seen and evaluated at a local ED but not sure if xrays were done --right rib series ordered Hypokalemia --repleted Hypomagnesemia --resolved Atypical chest pain ECG abnormalities --seen and evaluated by cardiology, anterior ST elevations related to baseline artifact and J-point elevation, no abnormal pathology --no events on telemetry --Echo: LV normal, RV normal; trace MR, trace TR --troponins negative x 3; ACS ruled out --CXR unremarkable FEN Fluids: vitamin bag ordered; then NS @ 100mL/hr Electrolytes: replete as indicated Nutrition: NPO pending CT DVT prophylaxis: subq heparin Dispo: continues to require inpatient care. Full code. Visit type - Emergency Visit Emergency Visit: Yes ED Registration Date: 06/22/17 Care time: The patient presented to the Emergency Department on the above date and was hospitalized for further evaluation of their emergent condition. - New Patient This patient is new to me today: No - Critical Care Critical Care patient: No
[2017-06-24] MEDS: HEPARIN NA (PORCINE) 5,000 UNITS/ML 1ML VIAL SQ SCH ×3 (05:11→22:09)
[2017-06-24] MEDS: chlordiazePOXIDE HCL 25 MG CAPSULE PO SCH ×2 (05:11→10:57)
[2017-06-24 09:06] LABS: BASO % 0.9 % (0-2.0); EOS % 2.9 % (0-4.5); HEMATOCRIT 31.3 % (35.4-49); HEMOGLOBIN 10.3 GM/dL (11.7-16.9); MCH 37.3 pg (25.7-33.7); MCHC 32.9 g/dl (32.0-35.9); MEAN CELL VOLUME 113.4 fl (80-96); MONO % 9.4 % (3.8-10.2); NEUT % 55.8 % (42.8-82.8); PLATELET COUNT 63 K/MM3 (134-434); RBC 2.76 M/mm3 (4.00-5.60); RDW 17.2 % (11.9-15.9); WHITE BLOOD COUNT 4.2 K/mm3 (4.0-10.0)
[2017-06-24 09:16] LABS: MAGNESIUM 2.1 mg/dL (1.8-2.4)
[2017-06-24] MEDS: FOLIC ACID 1 MG TABLET (FP) PO SCH (10:56)
[2017-06-24] MEDS: THIAMINE HCL 100 MG TABLET (FP) PO SCH (10:56)
--- NOTE | 2017-06-24 12:59 | PN ---
Physical Exam: SUBJECTIVE: Patient seen and examined. No events overnight. OBJECTIVE: Vital Signs Period Temp Pulse Resp BP Sys/Jackson Pulse Ox Last 24 Hr 98.0 F-992 F 55-84 18-18 100-120/57-75 98-99 GENERAL: The patient is awake, alert, and fully oriented, in no acute distress. HEAD: Normal with no signs of trauma. EYES: PERRL, extraocular movements intact, sclera anicteric, conjunctiva clear. No ptosis. LUNGS: Breath sounds equal, clear to auscultation bilaterally, no wheezes, no crackles, no accessory muscle use. HEART: Regular rate and rhythm, S1, S2 without murmur, rub or gallop. ABDOMEN: Soft, nontender, nondistended, normoactive bowel sounds, no guarding, no rebound, no hepatosplenomegaly, no masses. EXTREMITIES: 2+ pulses, warm, well-perfused, no edema. NEUROLOGICAL: Cranial nerves II through XII grossly intact. Normal speech, gait not observed. PSYCH: Normal mood, normal affect. Laboratory Results - last 24 hr 06/23/17 06/24/17 06/24/17 13:40 06:00 09:00 WBC 4.2 RBC 2.76 L Hgb 10.3 L Hct 31.3 L MCV 113.4 H MCH 37.3 H MCHC 32.9 RDW 17.2 H Plt Count 63 L MPV 10.0 D Neutrophils % 55.8 Lymphocytes % 31.0 Monocytes % 9.4 Eosinophils % 2.9 Basophils % 0.9 Magnesium 2.1 Ferritin 988.865 H Lipase 710 H Vitamin B12 1084 H Serum Folate 38 H Active Medications Generic Name Dose Route Start Last Admin Trade Name Freq PRN Reason Stop Dose Admin Chlordiazepoxide HCl 15 mg 06/24/17 17:00 Librium - PO 06/25/17 11:01 [id number] CHARLI Chlordiazepoxide HCl 25 mg 06/22/17 13:36 Librium - PO 06/25/17 13:35 Q4H PRN WITHDRAWAL(CONT SUBST) Folic Acid 1 mg 06/23/17 10:00 06/24/17 10:56 Folic Acid - PO 1 mg DAILY CHARLI Administration Heparin Sodium (Porcine) 5,000 unit 06/22/17 10:00 06/24/17 05:11 Heparin - SQ 5,000 unit TID CHARLI Administration Thiamine HCl 100 mg 06/23/17 10:00 06/24/17 10:56 Vitamin B1 - PO 100 mg DAILY CHARLI Administration MRI/ABDOMEN MRI WITH CONTRAST/MRCP ABDOMEN MRI (without and with contrast) / MRCP Clinical information given: abnormal abdomen CT Multiplanar, multiphase imaging was performed following the intravenous bolus administration of paramagnetic contrast in addition to standard noncontrast pulse sequences. MRCP was also obtained utilizing fast suppressed heavily T2-weighted fast spin-echo pulse sequences with cholangiographic and tomographic technique. The current exam is correlated with contrast enhanced abdomen/pelvis CT performed on 2016. As visualized on recently performed CT a 1.3 cm spherical cystic focus is seen within the ventral medial aspect of the second portion of the duodenal sweep centered approximately 0.7 cm above the level of the ampulla. The cystic focus appears separate from the common bile duct/ampulla. No obvious associated abnormal contrast enhancement or soft tissue nodularity is identified allowing for motion artifact. Fatty infiltration is seen involving the caudate lobe and the right and left hepatic lobes abutting the gallbladder fossa. The liver appears unremarkable in overall size and contour. No dilatation of the pancreaticobiliary ductal tract is noted. There is no discrete intraductal calculus. The gallbladder demonstrates a contracted appearance consistent with physiologic change given the unremarkable appearance on recently performed CT. No obvious gallbladder calculus is identified. The spleen, pancreas, adrenal glands and kidneys demonstrate no discrete pathology. There is no aortic aneurysm. No free intraperitoneal fluid is seen. There is no definite lymphadenopathy. IMPRESSION: A 1.3 cm nonspecific cystic focus is seen within the medial wall of the second portion of the duodenal sweep above the level of the ampulla. This cystic structure may represent a mucous retention cyst and probably less likely a cystic neoplasm. Endoscopic evaluation may be performed ( versus 3 month follow-up contrast enhanced CT as this particular finding is better appreciated on CT ). No choledochocele is visualized. Focal fatty infiltration of the liver is noted. Reported By: Shaun Guy MD 06/24/17 1033 ASSESSMENT/PLAN: A: 36 year-old male with a PMH significant for ETOH abuse and withdrawal seizures. Admitted for acute ETOH withdrawal, right-sided chest pain, and ECG abnormalities P: ETOH withdrawal - CIWA-Ar score-1 - librium taper - ativan PRN for seizure activity Abdominal pain- resolved - AST/ALT/Alk Phos- 442/140/252 - CTAP: "fluid structure" near biliary tree; no other obvious pancreaticoobiliary abnormalities - MRCP as above - Ferritin elevate to 988- Iron and hepatitis studies pending - given high ferritin- likely underlying liver disease - GI following Thrombocytopenia - improving- likely from liver disease - hepatitis studies pending Right-sided rib pain - right rib series read pending Hypokalemia - repleted with 40mEq x2 doses - trend K+ Hypomagnesemia - resolved Atypical chest pain with EKG changes - seen and evaluated by cardiology- cleared for detox - Echo: LV normal, RV normal; trace MR, trace TR - troponins negative x 3 - CXR unremarkable FEN - Regular diet - trend daily and replete prn PPX - OOB - sqh Dispo: continues to require inpatient care. Visit type - Emergency Visit Emergency Visit: Yes ED Registration Date: 06/22/17 Care time: The patient presented to the Emergency Department on the above date and was hospitalized for further evaluation of their emergent condition. - New Patient This patient is new to me today: Yes Date on this admission: 06/24/17 - Critical Care Critical Care patient: No
[2017-06-24] MEDS ORDERED: POTASSIUM CHLORIDE TABS 20 MEQ TABLET.ER (FP) PO ONE ×2 (14:49→18:49)
[2017-06-24] MEDS: chlordiazePOXIDE 5 MG CAPSULE PO SCH ×2 (18:14→22:09)
[2017-06-25] MEDS: chlordiazePOXIDE 5 MG CAPSULE PO SCH ×2 (05:43→10:00)
[2017-06-25] MEDS: HEPARIN NA (PORCINE) 5,000 UNITS/ML 1ML VIAL SQ SCH ×2 (05:43→14:29)
[2017-06-25 06:36] LABS: HBsAG SCREEN Negative (Negative); HEP A AB, IGM Negative (Negative); SERUM IRON SATURATION 81 % (15-55); TOTAL IRON BINDING CAPACITY 233 ug/dL (250-450); UIBC 44 ug/dL (111-343)
[2017-06-25 06:45] LABS: BASO % 0.5 % (0-2.0); EOS % 2.4 % (0-4.5); HEMATOCRIT 30.7 % (35.4-49); HEMOGLOBIN 10.3 GM/dL (11.7-16.9); LYMPH % 30.4 % (8-40); MCHC 33.4 g/dl (32.0-35.9); MEAN CELL VOLUME 113.7 fl (80-96); MEAN PLT VOLUME 9.7 fl (7.5-11.1); MONO % 11.3 % (3.8-10.2); NEUT % 55.4 % (42.8-82.8); PLATELET COUNT 91 K/MM3 (134-434); RDW 17.6 % (11.9-15.9); WHITE BLOOD COUNT 4.5 K/mm3 (4.0-10.0)
[2017-06-25 07:01] LABS: ALBUMIN 3.2 g/dl (3.4-5.0); ANION GAP 10 (8-16); BLOOD UREA NITROGEN 8 mg/dL (7-18); CALCIUM 9.5 mg/dL (8.5-10.1); CHLORIDE 103 mmol/L (98-107); CO2 25 mmol/L (21-32); GLUCOSE,RANDOM 107 mg/dL (74-106); SODIUM 138 mmol/L (136-145)
[2017-06-25 07:04] LABS: ALK PHOS 272 U/L (45-117); BILIRUBIN,TOTAL 0.8 mg/dL (0.2-1.0); CREATININE 0.4 mg/dL (0.7-1.3); SGOT/AST 282 U/L (15-37); SGPT/ALT 152 U/L (12-78); TOT PROT 6.4 g/dl (6.4-8.2)
[2017-06-25] MEDS: THIAMINE HCL 100 MG TABLET (FP) PO SCH (09:57)
[2017-06-25] MEDS: FOLIC ACID 1 MG TABLET (FP) PO SCH (09:57)
--- NOTE | 2017-06-25 12:09 | PN ---
Progress Note (short form) - Note Progress Note: Subjective:
--- NOTE | 2017-06-25 12:13 | DS ---
Physical Examination Vital Signs: Vital Signs Temperature 98.1 F 06/25/17 07:57 Pulse Rate 70 06/25/17 07:57 Respiratory Rate 18 06/25/17 07:57 Blood Pressure 128/73 06/25/17 07:57 O2 Sat by Pulse Oximetry (%) 100 06/25/17 07:57 Labs: CBC, BMP 06/25/17 05:05 06/25/17 05:05 Discharge Summary Reason For Visit: ABNORMAL EKG Current Active Problems Abnormal CT of the abdomen (Acute) Abnormal EKG (Acute) Elevated liver enzymes (Acute) Hospital Course: Spoke to Dr. Reinoso regarding the patient's discharge and MRI results. Per Dr. Reinoso, recommending outpatient EGD for evaluation of the 1.3 cm nonspecific cystic focus in the duodenal sweep. Condition: Improved - Instructions Diet, Activity, Other Instructions: Please return to the ED with new, persistent, or worsening symptoms. Please follow-up with providers as indicated. You MUST follow-up with Dr. Reinoso within 3-5 days to have your liver enzymes rechecked and to schedule an outpatient endoscopy to assess the 1.3 cm cystic focus within the duodenum that was found on your MRI. Referrals: Aleksandar Reinoso MD [Staff Physician] - (Please follow-up with Dr. Reinoso for an outpatient endoscopy and to have your liver enzymes rechecked in 3-5 days) John Crain MD [Staff Physician] - Zackary Nicholas MD [Staff Physician] - 1 Week Disposition: HOME - Home Medications Comprehensive Discharge Medication List: Ambulatory Orders Chlordiazepoxide [Librium -] 50 mg PO ASDIR 06/22/17
[2017-06-25 15:21] VITALS: BP 115/61; PULSE 73; TEMP 98.3
== END 2017-06-25 19:00 | disposition home or self-care (01) | DRG 775 ==
LOC: JER 02:02 → JERBED 09:13 → OBSVTOIN 13:00 → J4W 17:30
PROVIDERS: ADMIT Internal Medicine; ATTEND Registered Nurse
DX: F10.230 Alcohol dependence with withdrawal, uncomplicated (principal); E83.42 Hypomagnesemia; D69.6 Thrombocytopenia, unspecified; F17.210 Nicotine dependence, cigarettes, uncomplicated; R07.89 Other chest pain; R10.32 Left lower quadrant pain; E87.6 Hypokalemia; Z59.0 Homelessness; I45.81 Long QT syndrome; R74.8 Abnormal levels of other serum enzymes
CPT/HCPCS: 36415; 71010-TC; 71101-TC-RT; 74177-TC; 74182-TC; 80053; 80307; 81003; 82550; 82607; 82728; 82746; 83540; 83550; 83690; 83735; 84484; 85025; 86707; 86708; 86803; 87340; 87350; 93005; 93010; 93306-TC; 99285-25; G0378; J1644; Q9967

== ENCOUNTER 2017-08-23 16:24 | Inpatient (IN) | payer OTHER ==
[2017-08-23 17:46] VITALS: BMI 20.9
--- NOTE | 2017-08-23 18:46 | HP ---
CIWA Score - CIWA Score Nausea/Vomitin Muscle Tremors: 3 Anxiety: 2 Agitation: 1-Slight > Activity Paroxysmal Sweats: 3 Orientation: 1-Uncertain about Date Tacttile Disturbances: 0-None Auditory Disturbances: 0-None Visual Disturbances: 2-Mild Sensitivity Headache: 1-Very Mild CIWA-Ar Total Score: 16 Admission [facility] - HPI Chief Complaint: alcohol withdrawal symptoms, " I want to get better" Allergies/Adverse Reactions: Allergies Allergy/AdvReac Type Severity Reaction Status Date / Time No Known Allergies Allergy Verified 08/23/17 18:05 History of Present Illness: 36 yo male with long standing history of alcohol and nicotine dependence is here seeking detox. Patient reports hx of alcohol related seizure, last seizure was in May 2017. PMHX: seizures, depression, and insomnia. Denies any significant period of sobriety. Patient was admitted to [facility] for detox 06/21 was later admitted to the ED at [facility] d/t [facility]. Denies suicidal / homicidal ideation or suicide attempt. Denies any psychiatric hospital admission. - Ebola screening Have you traveled outside of the country in the last 21 days: No Have you had contact with anyone from an Ebola affected area: No Have you been sick,other than usual withdrawal symptoms: No Do you have a fever: No - Review of Systems Constitutional: Chills, Loss of Appetite, Changes in sleep, Unintentional Wgt. Loss EENT: reports: No Symptoms Reported Respiratory: reports: No Symptoms reported Cardiac: reports: No Symptoms Reported GI: reports: Nausea, Poor Appetite, Poor Fluid Intake : reports: No Symptoms Reported Musculoskeletal: reports: Joint Pain Integumentary: reports: No Symptoms Reported Neuro: reports: Seizure, Weakness Endocrine: reports: No Symptoms Reported Hematology: reports: No Symptoms Reported Psychiatric: reports: Orientated x3 Other Systems: Reviewed and Negative Patient History - Patient Medical History Hx Anemia: No Hx Asthma: No Hx Chronic Obstructive Pulmonary Disease (COPD): No Hx Cancer: No Hx Cardiac Disorders: Yes (hx chest pain ) Hx Congestive Heart Failure: No Hx Hypertension: No Hx Hypercholesterolemia: No Hx Pacemaker: No HX Cerebrovascular Accident: No Hx Seizures: Yes (Etoh-related, May 2017) Hx Dementia: No Hx Diabetes: No Hx Gastrointestinal Disorders: No Hx Liver Disease: No Hx Genitourinary Disorders: No Hx Sexually Transmitted Disorders: No Hx Renal Disease (ESRD): No Hx Thyroid Disease: No Hx Human Immunodeficiency Virus (HIV): No (Negative 11/2016) Hx Hepatitis C: No Hx Depression: No Hx Suicide Attempt: No Hx Bipolar Disorder: Yes (WAS ON SEROQUEL,RISPERDAL AND CELEXA) Hx Schizophrenia: No - Patient Surgical History Past Surgical History: No Hx Neurologic Surgery: No Hx Cataract Extraction: No Hx Cardiac Surgery: No Hx Lung Surgery: No Hx Breast Surgery: No Hx Breast Biopsy: No Hx Abdominal Surgery: No Hx Appendectomy: No Hx Cholecystectomy: No Hx Genitourinary Surgery: No Hx Section: No Hx Orthopedic Surgery: No Anesthesia Reaction: No - PPD History Previous Implant?: Yes Date: 02/08/17 Results: 0mm PPD to be Administered?: No - Reproductive History Patient is a Female of Child Bearing Age (11 -55 yrs old): No - Smoking Cessation Smoking history: Current every day smoker Have you smoked in the past 12 months: Yes Aproximately how many cigarettes per day: 15 Cigars Per Day: 0 Hx Chewing Tobacco Use: No Initiated information on smoking cessation: Yes 'Breaking Loose' booklet given: 08/23/17 - Substances Abused Alcohol Route: Oral Frequency: Daily Amount used: 3 PINTS Age of first use: 16 Date of Last Use: 08/23/17 Family Disease History - Family Disease History Family Disease History: Respiratory: Father (alcohol), Mother (alcohol, ) Admission Physical Exam [facility] - Vital Signs Vital Signs: Vital Signs - 24 hr 08/23/17 17:44 Temperature 97.8 F Pulse Rate 100 H Respiratory 18 Rate Blood Pressure 125/89 - Physical General Appearance: Yes: Disheveled, Mild Distress, Alcohol on Breath, Thin, Sweating, Anxious HEENTM: Yes: EOMI, Hearing grossly Normal, Normal ENT Inspection, Normocephalic , Normal Voice, BORIS, Pharynx Normal, Tm's normal Respiratory: Yes: Chest Non-Tender, Lungs Clear, Normal Breath Sounds, No Respiratory Distress, No Accessory Muscle Use Neck: Yes: No masses,lesions,Nodules, Trachea in good position Breast: Yes: Breast Exam Deferred Cardiology: Yes: Regular Rhythm, Regular Rate, S1, S2 Abdominal: Yes: Normal Bowel Sounds, Non Tender, Soft, Protuberent Genitourinary: Yes: Within Normal Limits Back: Yes: Normal Inspection Musculoskeletal: Yes: full range of Motion, Gait Steady, Pelvis Stable Extremities: Yes: Normal Capillary Refill, Normal Inspection, Normal Range of Motion, Non-Tender Neurological: Yes: derrick engineer II-XII NML intact, Fully Oriented, Alert, Motor Strength 5/5, Normal Response, Depressed Affect Integumentary: Yes: Normal Color, Dry, Warm Lymphatic: Yes: Within Normal Limits - Diagnostic (1) GERD (gastroesophageal reflux disease) Current Visit: Yes Status: Chronic Qualifiers: Esophagitis presence: esophagitis presence not specified Qualified Code(s) : K21.9 - Gastro-esophageal reflux disease without esophagitis (2) Difficulty sleeping Current Visit: Yes Status: Chronic (3) Dehydration Current Visit: Yes Status: Acute (4) Weight decreased Current Visit: No Status: Acute (5) Nicotine dependence Current Visit: Yes Status: Chronic Qualifiers: Nicotine product type: cigarettes (6) Seizure Current Visit: Yes Status: Chronic (7) Psychiatric disorder Current Visit: Yes Status: Chronic Cleared for Admission [facility] - Detox or Rehab [facility] Level of Care: Medically Managed Detox Regimen/Protocol: Librium [facility] Breath Alcohol Content Breath Alcohol Content: 0.462 Urine Drug Screen - Results Drug Screen Negative: Yes
[2017-08-23] MEDS ORDERED: MENTHOL/PHENOL 1 EACH UD MM PRN (18:55)
[2017-08-23] MEDS ORDERED: MAGNESIUM HYDROX 2400MG/30ML ORAL SUSPENSION 30 ML CUP PO PRN (18:55)
[2017-08-23] MEDS ORDERED: chlordiazePOXIDE HCL 25 MG CAPSULE PO ONE (18:55)
[2017-08-23] MEDS ORDERED: chlordiazePOXIDE HCL 25 MG CAPSULE PO PRN (18:55)
[2017-08-23] MEDS ORDERED: IBUPROFEN 400 MG TABLET (FP) PO PRN (18:55)
[2017-08-23] MEDS ORDERED: ACETAMINOPHEN 325 MG TABLET (FP) PO PRN (18:55)
[2017-08-23] MEDS ORDERED: guaiFENesin/D-METHORPHAN HB 10 ML UNIT-DOSE CUPS PO PRN (18:55)
[2017-08-23] MEDS ORDERED: LOPERAMIDE HCL 2 MG CAPSULE PO PRN (18:55)
[2017-08-23] MEDS ORDERED: MAGNESIUM CITRATE 300 ML BOTTLE PO PRN (18:55)
[2017-08-23] MEDS ORDERED: P-EPHED 60MG/TRIPROLIDI 2.5MG TABLET PO PRN (18:55)
[2017-08-23] MEDS ORDERED: NICOTINE POLACRILEX 2 MG GUM BC PRN (18:55)
[2017-08-23] MEDS ORDERED: MAG HYDROX/AL HYDROX/SIMETH 30 ML UNIT-DOSE CUP PO PRN (18:55)
[2017-08-23] MEDS: THIAMINE HCL 100 MG TABLET (FP) PO SCH (22:31)
[2017-08-23] MEDS: chlordiazePOXIDE HCL 25 MG CAPSULE PO SCH (22:31)
[2017-08-23] MEDS: levETIRAcetam 500 MG TABLET (FP) PO SCH (22:31)
[2017-08-23 22:44] LABS: URINE APPEARANCE CLEAR; URINE BILIRUBIN NEGATIVE (NEGATIVE); URINE BLOOD NEGATIVE (NEGATIVE); URINE COLOR STRAW; URINE GLUCOSE (UA) NEGATIVE (NEGATIVE); URINE KETONE NEGATIVE (NEGATIVE); URINE LEUK ESTERASE NEGATIVE (NEGATIVE); URINE NITRITE NEGATIVE (NEGATIVE); URINE PROTEIN NEGATIVE (NEGATIVE); URINE UROBILINOGEN NEGATIVE mg/dL (0.2-1.0)
[2017-08-24] MEDS: chlordiazePOXIDE HCL 25 MG CAPSULE PO SCH ×4 (05:51→22:11)
[2017-08-24 10:09] LABS: HEMATOCRIT 33.3 % (35.4-49); HEMOGLOBIN 11.5 GM/dL (11.7-16.9); MCH 38.1 pg (25.7-33.7); MCHC 34.4 g/dl (32.0-35.9); MEAN CELL VOLUME 110.8 fl (80-96); MEAN PLT VOLUME 8.3 fl (7.5-11.1); PLATELET COUNT 134 K/MM3 (134-434); RBC 3.01 M/mm3 (4.00-5.60); RDW 15.8 % (11.9-15.9); WHITE BLOOD COUNT 5.9 K/mm3 (4.0-10.0)
[2017-08-24] MEDS: PRENATAL VITAMINS W/ FOLIC ACID TABLET (FP) PO SCH (10:42)
[2017-08-24] MEDS: NICOTINE 21 MG/24 HOURS TOPICAL PATCH TD SCH (10:42)
[2017-08-24] MEDS: levETIRAcetam 500 MG TABLET (FP) PO SCH ×2 (10:42→22:11)
[2017-08-24] MEDS: PANTOPRAZOLE 40 MG TABLET (FP) PO SCH (10:42)
--- NOTE | 2017-08-24 11:28 | PN ---
[facility] CIWA - CIWA Score Nausea/Vomitin-No Nausea/No Vomiting Muscle Tremors: 4-Moderate,w/Arms Extend Anxiety: 4-Mod. Anxious/Guarded Agitation: 4-Moderately Restless Paroxysmal Sweats: 1-Minimal Palms Moist Orientation: 0-Oriented Tacttile Disturbances: 3-Moderate Itch/Numb/Burn Auditory Disturbances: 0-None Visual Disturbances: 0-None Headache: 0-None Present CIWA-Ar Total Score: 16 [facility] Progress Note (SOAP) Subjective: ANXIETY,TREMORS,SWEATS,HOT/COLD. Objective: 08/24/17 11:27 Vital Signs Temperature 98.6 F 08/24/17 11:04 Pulse Rate 92 H 08/24/17 11:04 Respiratory Rate 18 08/24/17 11:04 Blood Pressure 118/73 08/24/17 11:04 O2 Sat by Pulse Oximetry (%) Laboratory Last Values WBC 5.9 K/mm3 (4.0-10.0) D 08/24/17 07:30 RBC 3.01 M/mm3 (4.00-5.60) L 08/24/17 07:30 Hgb 11.5 GM/dL (11.7-16.9) L D 08/24/17 07:30 Hct 33.3 % (35.4-49) L 08/24/17 07:30 MCV 110.8 fl (80-96) H 08/24/17 07:30 MCH 38.1 pg (25.7-33.7) H 08/24/17 07:30 MCHC 34.4 g/dl (32.0-35.9) 08/24/17 07:30 RDW 15.8 % (11.9-15.9) D 08/24/17 07:30 Plt Count 134 K/MM3 (134-434) D 08/24/17 07:30 MPV 8.3 fl (7.5-11.1) D 08/24/17 07:30 Urine Color Straw 08/23/17 20:00 Urine Appearance Clear 08/23/17 20:00 Urine pH 6.0 (5.0-8.0) 08/23/17 20:00 Ur Specific Odell 1.004 (1.001-1.035) 08/23/17 20:00 Urine Protein Negative (NEGATIVE) 08/23/17 20:00 Urine Glucose (UA) Negative (NEGATIVE) 08/23/17 20:00 Urine Ketones Negative (NEGATIVE) 08/23/17 20:00 Urine Blood Negative (NEGATIVE) 08/23/17 20:00 Urine Nitrite Negative (NEGATIVE) 08/23/17 20:00 Urine Bilirubin Negative (NEGATIVE) 08/23/17 20:00 Urine Urobilinogen Negative mg/dL (0.2-1.0) 08/23/17 20:00 Ur Leukocyte Esterase Negative (NEGATIVE) 08/23/17 20:00 OTHER LABS PENDING Assessment: 08/24/17 11:27 WITHDRAWAL SX Plan: CONTINUE DETOX INCREASE PO FLUIDS
--- NOTE | 2017-08-24 11:41 | CONSULT ---
[facility] Psychiatric Consult - Data Date of interview: 08/24/17 Admission source: [facility] Identifying data: Pt. is a 36 year old single male, father of two, unemployed and currently homeless. Substance Abuse History: Following information confirmed with Mr. Santoyo: - Smoking Cessation. Smoking history: Current every day smoker. Have you smoked in the past 12 months: Yes. Aproximately how many cigarettes per day: 15. Cigars Per Day: 0. Hx Chewing Tobacco Use: No. Initiated information on smoking cessation: Yes. 'Breaking Loose' booklet given: 08/23/17. - Substances Abused. Alcohol. Route: Oral. Frequency: Daily. Amount used: 3 PINTS. Age of first use: 16. Date of Last Use: 08/23/17 Medical History: h/o chest pain, Seizures (r/t ETOH, last seizures occured on ) Psychiatric History: No reported history of psychiatric hospitalizations. Pt. reports outpatient care at [facility] from [id number] but currently see's a psychiatrist in [place]. Pt. reports being prescribed Seroquel 300mg in the past but now only receives Seroquel 100mg. Reports last dose was taken over one week ago. Pt. reports a diagnosis of depression. As per Dr. Umanzor on entry on 02/06/2017 patient has a diagnosis of Schizoaffective Disorder and has been on a regimen of risperdal,celexa and seroquel. As per patient, he currently only takes Seroquel. No reported suicide attempts. Physical/Sexual Abuse/Trauma History: Denies. Mental Status Exam - Mental Status Exam Alert and Oriented to: Time, Place, Person Cognitive Function: Good Patient Appearance: Well Groomed Mood: Euthymic Affect: Appropriate Patient Behavior: Cooperative Speech Pattern: Delayed Voice Loudness: Normal Thought Process: Goal Oriented Thought Disorder: Not Present Hallucinations: Denies Suicidal Ideation: Denies Homicidal Ideation: Denies Insight/Judgement: Poor Sleep: Poorly Appetite: Fair Muscle strength/Tone: Normal Gait/Station: Normal Psychiatric Findings - Problem List ([place] 1, 2,3) (1) Nicotine dependence Current Visit: Yes Status: Acute Qualifiers: Nicotine product type: cigarettes Substance use status: in withdrawal Qualified Code(s): F17.213 - Nicotine dependence, cigarettes, with withdrawal (2) Alcohol dependence with uncomplicated withdrawal Current Visit: Yes Status: Chronic (3) Drug-induced mood disorder Current Visit: Yes Status: Acute (4) Schizoaffective disorder Current Visit: Yes Status: Suspected Qualifiers: Schizoaffective disorder type: other Qualified Code(s): F25.8 - Other schizoaffective disorders Comment: Self-report.Non adherent to medications. - Initial Treatment Plan Initial Treatment Plan: Psychoeducation provided. Detoxification in progress. Seroquel 100mg qhs ordered. Benefits and side effects discussed. Verbal consent given. Will continue to monitor.
--- NOTE | 2017-08-24 11:43 | EKG ---
Test Reason : Blood Pressure : / mmHG Vent. Rate : 091 BPM Atrial Rate : 091 BPM P-R Int : 148 ms QRS Dur : 104 ms QT Int : 368 ms P-R-T Axes : 069 044 050 degrees QTc Int : 452 ms NORMAL SINUS RHYTHM POSSIBLE LEFT ATRIAL ENLARGEMENT INCOMPLETE RIGHT BUNDLE BRANCH BLOCK BORDERLINE ECG WHEN COMPARED WITH ECG OF 23-JUN-2017 09:16, VENT. RATE HAS INCREASED BY 40 BPM Confirmed by DANIEL EL, TYLER ([id number]) on 08/24/2017 11:42:36 AM Referred By: Confirmed By:TYLER SANCHEZ MD
[2017-08-24 12:21] LABS: ALBUMIN 3.2 g/dl (3.4-5.0); ANION GAP 10 (8-16); BLOOD UREA NITROGEN 7 mg/dL (7-18); CALCIUM 8.3 mg/dL (8.5-10.1); CHLORIDE 97 mmol/L (98-107); CO2 31 mmol/L (21-32); CREATININE 0.5 mg/dL (0.7-1.3); GLUCOSE,RANDOM 85 mg/dL (74-106); SGOT/AST 208 U/L (15-37); SGPT/ALT 84 U/L (12-78); SODIUM 138 mmol/L (136-145)
[2017-08-24 12:22] LABS: ALK PHOS 541 U/L (45-117); BILIRUBIN,TOTAL 0.9 mg/dL (0.2-1.0)
[2017-08-24] MEDS: THIAMINE HCL 100 MG TABLET (FP) PO SCH (22:11)
[2017-08-24] MEDS: QUEtiapine FUMARATE 100 MG TABLET (FP) PO SCH (22:11)
[2017-08-25] MEDS ORDERED: TRIMETHOBENZAMIDE HCL 200MG/2ML INJ IM PRN (04:03)
[2017-08-25] MEDS: chlordiazePOXIDE HCL 25 MG CAPSULE PO SCH ×3 (05:37→17:25)
[2017-08-25] MEDS: PRENATAL VITAMINS W/ FOLIC ACID TABLET (FP) PO SCH (10:34)
[2017-08-25] MEDS: levETIRAcetam 500 MG TABLET (FP) PO SCH ×2 (10:34→22:28)
[2017-08-25] MEDS: PANTOPRAZOLE 40 MG TABLET (FP) PO SCH (10:34)
[2017-08-25] MEDS: NICOTINE 21 MG/24 HOURS TOPICAL PATCH TD SCH (10:35)
--- NOTE | 2017-08-25 12:10 | PN ---
[facility] CIWA - CIWA Score Nausea/Vomitin-No Nausea/No Vomiting Muscle Tremors: 4-Moderate,w/Arms Extend Anxiety: 4-Mod. Anxious/Guarded Agitation: 4-Moderately Restless Paroxysmal Sweats: 1-Minimal Palms Moist Orientation: 0-Oriented Tacttile Disturbances: 3-Moderate Itch/Numb/Burn Auditory Disturbances: 0-None Visual Disturbances: 0-None Headache: 0-None Present CIWA-Ar Total Score: 16 BHS Progress Note (SOAP) Subjective: ANXIETY,SWEATS,TREMORS,FATIGUE. Objective: 08/25/17 12:08 Vital Signs Temperature 98 F 08/25/17 09:39 Pulse Rate 78 08/25/17 09:39 Respiratory Rate 18 08/25/17 09:39 Blood Pressure 114/79 08/25/17 09:39 O2 Sat by Pulse Oximetry (%) Laboratory Last Values WBC 5.9 K/mm3 (4.0-10.0) D 08/24/17 07:30 RBC 3.01 M/mm3 (4.00-5.60) L 08/24/17 07:30 Hgb 11.5 GM/dL (11.7-16.9) L D 08/24/17 07:30 Hct 33.3 % (35.4-49) L 08/24/17 07:30 MCV 110.8 fl (80-96) H 08/24/17 07:30 MCH 38.1 pg (25.7-33.7) H 08/24/17 07:30 MCHC 34.4 g/dl (32.0-35.9) 08/24/17 07:30 RDW 15.8 % (11.9-15.9) D 08/24/17 07:30 Plt Count 134 K/MM3 (134-434) D 08/24/17 07:30 MPV 8.3 fl (7.5-11.1) D 08/24/17 07:30 Sodium 138 mmol/L (136-145) 08/24/17 07:30 Potassium 3.0 mmol/L (3.5-5.1) L D 08/24/17 07:30 Chloride 97 mmol/L (98-107) L 08/24/17 07:30 Carbon Dioxide 31 mmol/L (21-32) D 08/24/17 07:30 Anion Gap 10 (8-16) 08/24/17 07:30 BUN 7 mg/dL (7-18) 08/24/17 07:30 Creatinine 0.5 mg/dL (0.7-1.3) L D 08/24/17 07:30 Creat Clearance w eGFR > 60 (>60) 08/24/17 07:30 Random Glucose 85 mg/dL (74-106) D 08/24/17 07:30 Calcium 8.3 mg/dL (8.5-10.1) L 08/24/17 07:30 Total Bilirubin 0.9 mg/dL (0.2-1.0) 08/24/17 07:30 AST 208 U/L (15-37) H D 08/24/17 07:30 ALT 84 U/L (12-78) H D 08/24/17 07:30 Alkaline Phosphatase 541 U/L (45-117) H D 08/24/17 07:30 Total Protein 7.0 g/dl (6.4-8.2) 08/24/17 07:30 Albumin 3.2 g/dl (3.4-5.0) L 08/24/17 07:30 Urine Color Straw 08/23/17 20:00 Urine Appearance Clear 08/23/17 20:00 Urine pH 6.0 (5.0-8.0) 08/23/17 20:00 Ur Specific [place] 1.004 (1.001-1.035) 08/23/17 20:00 Urine Protein Negative (NEGATIVE) 08/23/17 20:00 Urine Glucose (UA) Negative (NEGATIVE) 08/23/17 20:00 Urine Ketones Negative (NEGATIVE) 08/23/17 20:00 Urine Blood Negative (NEGATIVE) 08/23/17 20:00 Urine Nitrite Negative (NEGATIVE) 08/23/17 20:00 Urine Bilirubin Negative (NEGATIVE) 08/23/17 20:00 Urine Urobilinogen Negative mg/dL (0.2-1.0) 08/23/17 20:00 Ur Leukocyte Esterase Negative (NEGATIVE) 08/23/17 20:00 RPR Titer Nonreactive (NONREACTIVE) 08/24/17 07:30 HIV 1&2 Antibody Screen Negative 08/24/17 07:45 HIV P24 Antigen Negative 08/24/17 07:45 K+ =3.0 ELEVATED LIVER ENZYMES Assessment: 08/25/17 12:09 WITHDRAWAL SX ABNORMAL LABS Plan: CONTINUE DETOX REPEAT CBC AND CMP;INR ON 08/26/17 INCREASE PO FLUIDS.
[2017-08-25] MEDS ORDERED: POTASSIUM CHLORIDE ORAL LIQUID 20 MEQ/15 ML PO ONE (12:25)
[2017-08-25] MEDS: THIAMINE HCL 100 MG TABLET (FP) PO SCH (22:27)
[2017-08-25] MEDS: QUEtiapine FUMARATE 100 MG TABLET (FP) PO SCH (22:28)
[2017-08-25] MEDS: chlordiazePOXIDE 5 MG CAPSULE PO SCH (22:28)
[2017-08-25] MEDS: POTASSIUM CHLORIDE ORAL LIQUID 20 MEQ/15 ML PO SCH (22:48)
[2017-08-26] MEDS: chlordiazePOXIDE 5 MG CAPSULE PO SCH ×3 (05:44→18:15)
[2017-08-26] MEDS: levETIRAcetam 500 MG TABLET (FP) PO SCH ×2 (10:18→22:42)
[2017-08-26] MEDS: NICOTINE 21 MG/24 HOURS TOPICAL PATCH TD SCH (10:18)
[2017-08-26] MEDS: PRENATAL VITAMINS W/ FOLIC ACID TABLET (FP) PO SCH (10:18)
[2017-08-26] MEDS: POTASSIUM CHLORIDE ORAL LIQUID 20 MEQ/15 ML PO SCH ×2 (10:18→22:42)
[2017-08-26] MEDS: PANTOPRAZOLE 40 MG TABLET (FP) PO SCH (10:18)
[2017-08-26 10:56] LABS: HEMATOCRIT 33.4 % (35.4-49); HEMOGLOBIN 11.3 GM/dL (11.7-16.9); MCH 38.1 pg (25.7-33.7); MCHC 33.7 g/dl (32.0-35.9); MEAN CELL VOLUME 113.1 fl (80-96); PLATELET COUNT 140 K/MM3 (134-434); RBC 2.96 M/mm3 (4.00-5.60); RDW 15.4 % (11.9-15.9); WHITE BLOOD COUNT 6.3 K/mm3 (4.0-10.0)
[2017-08-26 11:13] LABS: PROTHROMBIN TIME (PATIENT) 11.3 SEC (9.98-11.88)
[2017-08-26 11:17] LABS: ALBUMIN 2.8 g/dl (3.4-5.0); ANION GAP 10 (8-16); BLOOD UREA NITROGEN 8 mg/dL (7-18); CHLORIDE 102 mmol/L (98-107); CO2 31 mmol/L (21-32); GLUCOSE,RANDOM 87 mg/dL (74-106); POTASSIUM 4.2 mmol/L (3.5-5.1); SGOT/AST 228 U/L (15-37); SGPT/ALT 111 U/L (12-78); SODIUM 143 mmol/L (136-145)
[2017-08-26 11:19] LABS: ALK PHOS 466 U/L (45-117); BILIRUBIN,TOTAL 0.6 mg/dL (0.2-1.0); CREATININE 0.5 mg/dL (0.7-1.3); TOT PROT 6.9 g/dl (6.4-8.2)
--- NOTE | 2017-08-26 16:19 | PN ---
BHS Progress Note (SOAP) Subjective: Tremors, Sweating, Fatigue. Objective: PATIENT A & O X 3, OBSERVED AMBULATING ON UNIT. NO ACUTE DISTRESS. 08/26/17 16:18 Vital Signs Temperature 98.8 F 08/26/17 14:20 Pulse Rate 75 08/26/17 14:20 Respiratory Rate 18 08/26/17 14:20 Blood Pressure 117/78 08/26/17 14:20 O2 Sat by Pulse Oximetry (%) Laboratory Tests 08/23/17 08/24/17 08/24/17 20:00 07:30 07:30 WBC 5.9 D RBC 3.01 L Hgb 11.5 L D Hct 33.3 L MCV 110.8 H MCH 38.1 H MCHC 34.4 RDW 15.8 D Plt Count 134 D MPV 8.3 D PT with INR INR Sodium 138 Potassium 3.0 L D Chloride 97 L Carbon Dioxide 31 D Anion Gap 10 BUN 7 Creatinine 0.5 L D Creat Clearance w eGFR > 60 Random Glucose 85 D Calcium 8.3 L Total Bilirubin 0.9 AST 208 H D ALT 84 H D Alkaline Phosphatase 541 H D Total Protein 7.0 Albumin 3.2 L Urine Color Straw Urine Appearance Clear Urine pH 6.0 Ur Specific [place] 1.004 Urine Protein Negative Urine Glucose (UA) Negative Urine Ketones Negative Urine Blood Negative Urine Nitrite Negative Urine Bilirubin Negative Urine Urobilinogen Negative Ur Leukocyte Esterase Negative RPR Titer HIV 1&2 Antibody Screen HIV P24 Antigen 08/24/17 08/24/17 08/26/17 07:30 07:45 07:50 WBC 6.3 RBC 2.96 L Hgb 11.3 L Hct 33.4 L MCV 113.1 H MCH 38.1 H MCHC 33.7 RDW 15.4 Plt Count 140 MPV 9.0 PT with INR INR Sodium Potassium Chloride Carbon Dioxide Anion Gap BUN Creatinine Creat Clearance w eGFR Random Glucose Calcium Total Bilirubin AST ALT Alkaline Phosphatase Total Protein Albumin Urine Color Urine Appearance Urine pH Ur Specific [place] Urine Protein Urine Glucose (UA) Urine Ketones Urine Blood Urine Nitrite Urine Bilirubin Urine Urobilinogen Ur Leukocyte Esterase RPR Titer Nonreactive HIV 1&2 Antibody Screen Negative HIV P24 Antigen Negative 08/26/17 08/26/17 07:50 07:50 WBC RBC Hgb Hct MCV MCH MCHC RDW Plt Count MPV PT with INR 11.30 INR 1.00 Sodium 143 Potassium 4.2 D Chloride 102 Carbon Dioxide 31 Anion Gap 10 BUN 8 Creatinine 0.5 L Creat Clearance w eGFR > 60 Random Glucose 87 Calcium 9.0 Total Bilirubin 0.6 D AST 228 H ALT 111 H D Alkaline Phosphatase 466 H Total Protein 6.9 Albumin 2.8 L Urine Color Urine Appearance Urine pH Ur Specific [place] Urine Protein Urine Glucose (UA) Urine Ketones Urine Blood Urine Nitrite Urine Bilirubin Urine Urobilinogen Ur Leukocyte Esterase RPR Titer HIV 1&2 Antibody Screen HIV P24 Antigen labs noted. Assessment: 08/26/17 16:18 WITHDRAWAL SYMPTOMS. Plan: CONTINUE DETOX. INCREASE DAILY PO FLUID INTAKE.
[2017-08-26] MEDS: chlordiazePOXIDE HCL 10 MG CAPSULE PO SCH (22:42)
[2017-08-26] MEDS: THIAMINE HCL 100 MG TABLET (FP) PO SCH (22:42)
[2017-08-26] MEDS: QUEtiapine FUMARATE 100 MG TABLET (FP) PO SCH (22:42)
[2017-08-27] MEDS: chlordiazePOXIDE HCL 10 MG CAPSULE PO SCH (05:18)
[2017-08-27 06:32] VITALS: BP 99/60; PULSE 66; TEMP 97
--- NOTE | 2017-08-27 12:03 | DS ---
[facility] Detox Discharge Summary Admission Date: 08/23/17 - History Present History: Alcohol Dependence Pertinent Past History: GERD Alcohol related seizure disorder - Physical Exam Results Vital Signs: Vital Signs Temperature 97 F L 08/27/17 06:32 Pulse Rate 66 08/27/17 06:32 Respiratory Rate 18 08/27/17 06:32 Blood Pressure 99/60 08/27/17 06:32 O2 Sat by Pulse Oximetry (%) Pertinent Admission Physical Exam Findings: Withdrawal symptoms Laboratory Tests 08/23/17 08/24/17 08/24/17 20:00 07:30 07:30 WBC 5.9 D RBC 3.01 L Hgb 11.5 L D Hct 33.3 L MCV 110.8 H MCH 38.1 H MCHC 34.4 RDW 15.8 D Plt Count 134 D MPV 8.3 D PT with INR INR Sodium 138 Potassium 3.0 L D Chloride 97 L Carbon Dioxide 31 D Anion Gap 10 BUN 7 Creatinine 0.5 L D Creat Clearance w eGFR > 60 Random Glucose 85 D Calcium 8.3 L Total Bilirubin 0.9 AST 208 H D ALT 84 H D Alkaline Phosphatase 541 H D Total Protein 7.0 Albumin 3.2 L Urine Color Straw Urine Appearance Clear Urine pH 6.0 Ur Specific [place] 1.004 Urine Protein Negative Urine Glucose (UA) Negative Urine Ketones Negative Urine Blood Negative Urine Nitrite Negative Urine Bilirubin Negative Urine Urobilinogen Negative Ur Leukocyte Esterase Negative RPR Titer HIV 1&2 Antibody Screen HIV P24 Antigen 08/24/17 08/24/17 08/26/17 07:30 07:45 07:50 WBC 6.3 RBC 2.96 L Hgb 11.3 L Hct 33.4 L MCV 113.1 H MCH 38.1 H MCHC 33.7 RDW 15.4 Plt Count 140 MPV 9.0 PT with INR INR Sodium Potassium Chloride Carbon Dioxide Anion Gap BUN Creatinine Creat Clearance w eGFR Random Glucose Calcium Total Bilirubin AST ALT Alkaline Phosphatase Total Protein Albumin Urine Color Urine Appearance Urine pH Ur Specific [place] Urine Protein Urine Glucose (UA) Urine Ketones Urine Blood Urine Nitrite Urine Bilirubin Urine Urobilinogen Ur Leukocyte Esterase RPR Titer Nonreactive HIV 1&2 Antibody Screen Negative HIV P24 Antigen Negative 08/26/17 08/26/17 07:50 07:50 WBC RBC Hgb Hct MCV MCH MCHC RDW Plt Count MPV PT with INR 11.30 INR 1.00 Sodium 143 Potassium 4.2 D Chloride 102 Carbon Dioxide 31 Anion Gap 10 BUN 8 Creatinine 0.5 L Creat Clearance w eGFR > 60 Random Glucose 87 Calcium 9.0 Total Bilirubin 0.6 D AST 228 H ALT 111 H D Alkaline Phosphatase 466 H Total Protein 6.9 Albumin 2.8 L Urine Color Urine Appearance Urine pH Ur Specific [place] Urine Protein Urine Glucose (UA) Urine Ketones Urine Blood Urine Nitrite Urine Bilirubin Urine Urobilinogen Ur Leukocyte Esterase RPR Titer HIV 1&2 Antibody Screen HIV P24 Antigen Labs noted - Treatment Hospital Course: Detox Protocol Followed, Detoxed Safely, Responded well, Discharged Condition Good - Medication Discharge Medications: Ambulatory Orders Folic Acid 1 mg PO DAILY 08/23/17 Pantoprazole Sodium [Protonix -] 40 mg PO DAILY 08/23/17 Thiamine HCl [Vitamin B-1] 50 mg PO DAILY 08/23/17 levETIRAcetam [Keppra -] 500 mg PO BID 08/23/17 - Diagnosis (1) Bipolar disorder Status: Chronic (2) Hypokalemia Status: Acute (3) Alcohol dependence with uncomplicated withdrawal Status: Acute (4) Elevated liver enzymes Status: Acute (5) Insomnia Status: Acute (6) Nicotine dependence Status: Chronic Qualifiers: Nicotine product type: cigarettes Substance use status: in withdrawal Qualified Code(s): F17.213 - Nicotine dependence, cigarettes, with withdrawal (7) GERD (gastroesophageal reflux disease) Status: Chronic Qualifiers: Esophagitis presence: esophagitis presence not specified Qualified Code(s) : K21.9 - Gastro-esophageal reflux disease without esophagitis (8) Alcohol related seizure Status: Chronic - AMA Did Patient Leave Against Medical Advice: No (Follow up with your PCP within 1- 2 weeks)
== END 2017-08-27 09:00 | disposition home or self-care (01) | DRG 775 ==
LOC: YASAS 16:24 → Y3N 18:13
PROVIDERS: ADMIT Internal Medicine; ATTEND Internal Medicine
PROC: HZ2ZZZZ Detoxification Services for Substance Abuse Treatment (ICD-10-PCS; principal; 2017-08-23)
DX: F10.230 Alcohol dependence with withdrawal, uncomplicated (principal); F17.213 Nicotine dependence, cigarettes, with withdrawal; F31.9 Bipolar disorder, unspecified; F19.24 Other psychoactive substance dependence with psychoactive substance-induced mood disorder; F25.8 Other schizoaffective disorders; F29 Unspecified psychosis not due to a substance or known physiological condition; R94.5 Abnormal results of liver function studies; G47.00 Insomnia, unspecified; K21.9 Gastro-esophageal reflux disease without esophagitis; E86.0 Dehydration; Z86.69 Personal history of other diseases of the nervous system and sense organs; Z87.898 Personal history of other specified conditions
CPT/HCPCS: 36415; 80053; 81003; 85027; 85610; 86593; 87389; 93005; 93010

== ENCOUNTER 2019-06-18 16:17 | Inpatient (IN) | payer OTHER ==
[2019-06-18 16:36] VITALS: BMI 19.4
--- NOTE | 2019-06-18 20:38 | HP ---
CIWA Score Nausea/Vomitin-Mild Nausea/No Vomiting Muscle Tremors: 2 Anxiety: 2 Agitation: 1-Slight > Activity Paroxysmal Sweats: 2 Orientation: 0-Oriented Tacttile Disturbances: 2-Mild Itch/Numbness/Burn Auditory Disturbances: 1-Very Mild Visual Disturbances: 1-Very Mild Sensitivity Headache: 2-Mild CIWA-Ar Total Score: 14 - Admission Criteria OASAS Guidelines: Admission for Medically Managed Detox: Requires at least one of the followin. CIWA greater than 12 2. Seizures within the past 24 hours 3. Delirium tremens within the past 24 hours 4. Hallucinations within the past 24 hours 5. Acute intervention needed for co occurring medical disorder 6. Acute intervention needed for co occurring psychiatric disorder 7. Severe withdrawal that cannot be handled at a lower level of care (continued vomiting, continued diarrhea, abnormal vital signs) requiring intravenous medication and/or fluids 8. Admitting History and Physical - Smoking History Smoking history: Current every day smoker Have you smoked in the past 12 months: Yes Aproximately how many cigarettes per day: 15 - Alcohol/Substance Use Hx Alcohol Use: Yes Admission ROS [facility] Chief Complaint: WITHDRAWAL SYMPTOMS Allergies/Adverse Reactions: Allergies Allergy/AdvReac Type Severity Reaction Status Date / Time No Known Allergies Allergy Verified 06/18/19 16:25 History of Present Illness: 38 Y.O. MAN WITH HISTORY OF ALCOHOL DEPENDENCE IS HERE SEEKING DETOX SERVICES. HE REPORTS HE LAST COMPLETED DETOX AND REHAB IN THE SUMMER AT [facility]. LONGEST PERIOD OF SOBRIETY HAS BEEN ONE MONTH. Exam Limitations: No Limitations - Ebola screening Have you traveled outside of the country in the last 21 days: No (N) Have you had contact with anyone from an Ebola affected area: No Do you have a fever: No - Review of Systems Constitutional: Chills, Diaphoresis, Night Sweats EENT: reports: Tearing Respiratory: reports: No Symptoms reported Cardiac: reports: No Symptoms Reported GI: reports: No Symptoms Reported : reports: No Symptoms Reported Musculoskeletal: reports: No Symptoms Reported Integumentary: reports: No Symptoms Reported Neuro: reports: Headache, Numbness, Seizure, Tingling Endocrine: reports: No Symptoms Reported Hematology: reports: No Symptoms Reported Psychiatric: reports: Orientated x3, Depressed Other Systems: Reviewed and Negative Patient History - Patient Medical History Hx Anemia: No Hx Asthma: No Hx Chronic Obstructive Pulmonary Disease (COPD): No Hx Cancer: No Hx Cardiac Disorders: No (Denies any cardiac issues ) Hx Congestive Heart Failure: No Hx Hypertension: No Hx Hypercholesterolemia: No Hx Pacemaker: No HX Cerebrovascular Accident: No Hx Seizures: Yes (ETOH-INDUCED;LAST IN ) Hx Dementia: No Hx Diabetes: No Hx Gastrointestinal Disorders: No Hx Liver Disease: No Hx Genitourinary Disorders: No Hx Sexually Transmitted Disorders: No Hx Renal Disease (ESRD): No Hx Thyroid Disease: No Hx Human Immunodeficiency Virus (HIV): No (Negative 11/2016) Hx Hepatitis C: No Hx Depression: No Hx Suicide Attempt: No Hx Bipolar Disorder: Yes (WAS ON SEROQUEL,RISPERDAL AND CELEXA) Hx Schizophrenia: No - Patient Surgical History Past Surgical History: No Hx Neurologic Surgery: No Hx Cataract Extraction: No Hx Cardiac Surgery: No Hx Lung Surgery: No Hx Breast Surgery: No Hx Breast Biopsy: No Hx Abdominal Surgery: No Hx Appendectomy: No Hx Cholecystectomy: No Hx Genitourinary Surgery: No Hx Section: No Hx Orthopedic Surgery: No Anesthesia Reaction: No - PPD History Previous Implant?: Yes Documented Results: Negative w/proof Implanted On Prior R Admission?: Yes Date: 02/08/17 Results: 0mm PPD to be Administered?: Yes - Reproductive History Patient is a Female of Child Bearing Age (11 -55 yrs old): No - Smoking Cessation Smoking history: Current every day smoker Have you smoked in the past 12 months: Yes Aproximately how many cigarettes per day: 10 Cigars Per Day: 0 Hx Chewing Tobacco Use: No Initiated information on smoking cessation: Yes 'Breaking Loose' booklet given: 06/18/19 - Substance & Tx. History Hx Alcohol Use: Yes Hx Substance Use: No Substance Use Type: Alcohol Hx Substance Use Treatment: Yes (DETOX AND REHAB IN THE SUMMER 2018) - Substances abused Alcohol Substance route: Oral Frequency: Daily Amount used: 2 pints of vodka Age of first use: 19 Date of last use: 06/18/19 Marijuana/Hashish Substance route: Smoking Frequency: 1-3 times last 30 days Amount used: $10 Age of first use: 12 Date of last use: 06/17/19 Admission Physical Exam BHS - Vital Signs Vital Signs: Vital Signs - 24 hr 06/18/19 06/18/19 16:24 19:35 Temperature 97 F L 97 F L Pulse Rate 98 H 98 H Respiratory 18 18 Rate Blood Pressure 121/72 121/72 - Physical General Appearance: Yes: Thin, Sweating, Anxious HEENTM: Yes: Normocephalic, Normal Voice Respiratory: Yes: Chest Non-Tender, Lungs Clear, Normal Breath Sounds, No Respiratory Distress, No Accessory Muscle Use Neck: Yes: Within Normal Limits Breast: Yes: Breast Exam Deferred Cardiology: Yes: Regular Rhythm, Regular Rate Abdominal: Yes: Normal Bowel Sounds, Non Tender Genitourinary: Yes: Within Normal Limits Back: Yes: Normal Inspection Musculoskeletal: Yes: full range of Motion, Gait Steady, Pelvis Stable Extremities: Yes: Normal Capillary Refill, Normal Inspection, Normal Range of Motion, Non-Tender Neurological: Yes: Alert, Normal Mood/Affect, Normal Response, Numbness Integumentary: Yes: Normal Color, Dry, Warm Lymphatic: Yes: Within Normal Limits - Diagnostic (1) Alcohol dependence with uncomplicated withdrawal Current Visit: No Status: Acute (2) Weight decreased Current Visit: Yes Status: Chronic (3) Alcohol related seizure Current Visit: Yes Status: Chronic (4) GERD (gastroesophageal reflux disease) Current Visit: Yes Status: Chronic Qualifiers: Esophagitis presence: esophagitis presence not specified Qualified Code(s) : K21.9 - Gastro-esophageal reflux disease without esophagitis (5) Nicotine dependence Current Visit: Yes Status: Chronic Qualifiers: Nicotine product type: cigarettes Substance use status: in withdrawal Qualified Code(s): F17.213 - Nicotine dependence, cigarettes, with withdrawal Cleared for Admission [facility] - Detox or Rehab [facility] Level of Care: Medically Managed Detox Regimen/Protocol: Librium Claeared for Rehab Admission: No Breathalyzer - Breathalyzer Breathalyzer: 0.012 Urine Drug Screen - Test Device Lot number: [id number] Expiration date: 01/23/21 - Control Is test valid?: Yes - Results Drug screen NEGATIVE: No Urine drug screen results: THC-Marijuana, MET-Methamphetamine Inpatient Rehab Admission - Rehab Decision to Admit Inpatient rehab admission?: No
[2019-06-18] MEDS ORDERED: chlordiazePOXIDE HCL 25 MG CAPSULE PO PRN (20:41)
[2019-06-18] MEDS ORDERED: hydrOXYzine PAMOATE 25 MG CAPSULE (FP) PO PRN (20:41)
[2019-06-18] MEDS ORDERED: NICOTINE POLACRILEX 2 MG GUM BUC PRN (20:41)
[2019-06-18] MEDS ORDERED: IBUPROFEN 400 MG TABLET (FP) PO PRN (20:41)
[2019-06-18] MEDS ORDERED: MAGNESIUM CITRATE 300 ML BOTTLE PO PRN (20:41)
[2019-06-18] MEDS ORDERED: BISMUTH SUBSALICYLATE 524 MG/30 ML UD PO PRN (20:41)
[2019-06-18] MEDS ORDERED: MAG HYDROX/AL HYDROX/SIMETH 30 ML UNIT-DOSE CUP PO PRN (20:41)
[2019-06-18] MEDS ORDERED: MENTHOL/PHENOL 1 EACH UD MM PRN (20:41)
[2019-06-18] MEDS ORDERED: PROCHLORPERAZINE MALEATE 5 MG TABLET PO PRN (20:41)
[2019-06-18] MEDS ORDERED: ONDANSETRON *ODT* 4 MG TABLET SL PRN (20:41)
[2019-06-18] MEDS ORDERED: MELATONIN 5 MG TABLETS PO PRN (20:41)
[2019-06-18] MEDS ORDERED: METHOCARBAMOL 500 MG TABLET PO PRN (20:41)
[2019-06-18] MEDS ORDERED: ACETAMINOPHEN 325 MG TABLET (FP) PO PRN ×2 (20:41)
[2019-06-18] MEDS ORDERED: MAGNESIUM HYDROX 2400MG/30ML ORAL SUSPENSION 30 ML CUP PO PRN (20:41)
[2019-06-18] MEDS: THIAMINE HCL 100 MG TABLET (FP) PO SCH (21:41)
[2019-06-18] MEDS: levETIRAcetam 500 MG TABLET (FP) PO SCH (21:41)
[2019-06-18] MEDS: QUEtiapine FUMARATE 100 MG TABLET (FP) PO SCH (21:42)
[2019-06-18] MEDS: chlordiazePOXIDE HCL 25 MG CAPSULE PO SCH (22:48)
[2019-06-19] MEDS: chlordiazePOXIDE HCL 25 MG CAPSULE PO SCH ×4 (06:26→22:41)
[2019-06-19] MEDS: PANTOPRAZOLE 40 MG TABLET (FP) PO SCH (10:49)
[2019-06-19] MEDS: PRENATAL VITAMINS W/ FOLIC ACID TABLET (FP) PO SCH (10:49)
[2019-06-19] MEDS: levETIRAcetam 500 MG TABLET (FP) PO SCH ×2 (10:49→22:41)
[2019-06-19] MEDS: NICOTINE 14 MG/24 HOURS TOPICAL PATCH TD SCH (10:51)
[2019-06-19 11:04] LABS: ALBUMIN 2.3 g/dl (3.4-5.0); BILIRUBIN,TOTAL 2.5 mg/dL (0.2-1); BLOOD UREA NITROGEN 4.8 mg/dL (7-18); CREATININE 0.6 mg/dL (0.55-1.3); TOT PROT 6.4 g/dl (6.4-8.2)
[2019-06-19 11:08] LABS: POTASSIUM 2.6 mmol/L (3.5-5.1)
[2019-06-19 11:10] LABS: HEMATOCRIT 23.4 % (35.4-49); HEMOGLOBIN 7.8 GM/dL (11.7-16.9); MCH 35.9 pg (25.7-33.7); MCHC 33.4 g/dl (32.0-35.9); MEAN CELL VOLUME 107.6 fl (80-96); MEAN PLT VOLUME 8.9 fl (7.5-11.1); PLATELET COUNT 60 K/MM3 (134-434); RBC 2.18 M/mm3 (4.00-5.60); RDW 20.3 % (11.9-15.9); WHITE BLOOD COUNT 6.2 K/mm3 (4.0-10.0)
--- NOTE | 2019-06-19 12:22 | PN ---
S CIWA - CIWA Score Nausea/Vomitin-No Nausea/No Vomiting Muscle Tremors: 3 Anxiety: 3 Agitation: 3 Paroxysmal Sweats: 3 Orientation: 0-Oriented Tacttile Disturbances: 0-None Auditory Disturbances: 0-None Visual Disturbances: 0-None Headache: 0-None Present CIWA-Ar Total Score: 12 S Progress Note (SOAP) Subjective: sweats body aches tired shakes Objective: 06/19/19 12:20 Vital Signs Temperature 98.2 F 06/19/19 09:30 Pulse Rate 106 H 06/19/19 09:30 Respiratory Rate 18 06/19/19 09:30 Blood Pressure 120/76 06/19/19 09:30 O2 Sat by Pulse Oximetry (%) Laboratory Tests 06/19/19 06/19/19 07:50 07:50 WBC 6.2 RBC 2.18 L Hgb 7.8 L Hct 23.4 L D MCV 107.6 H MCH 35.9 H MCHC 33.4 RDW 20.3 H Plt Count 60 L D MPV 8.9 Sodium 142 Potassium 2.6 L* Chloride 109 H Carbon Dioxide 25 Anion Gap 9 BUN 4.8 L Creatinine 0.6 Est GFR (CKD-EPI)AfAm 145.76 Est GFR (CKD-EPI)NonAf 125.77 Random Glucose 104 Calcium 8.0 L Total Bilirubin 2.5 H AST 239 H ALT 54 Alkaline Phosphatase 339 H Total Protein 6.4 Albumin 2.3 L labs noted low potassium 2.6 low H:H elevated ast aaox3 lying in bed no acute distress Assessment: 06/19/19 12:21 withdrawals Plan: continue detox increase fluids iron supplement tid ordered kcl qid x 3 doses ordered repeat labs tylenol d/c
[2019-06-19] MEDS: POTASSIUM CHLORIDE ORAL LIQUID 20 MEQ/15 ML PO SCH ×3 (14:51→22:41)
[2019-06-19] MEDS: FERROUS SO4 325 MG TABLET (FP) PO SCH ×2 (14:51→17:37)
[2019-06-19] MEDS: QUEtiapine FUMARATE 100 MG TABLET (FP) PO SCH (22:41)
[2019-06-19] MEDS: THIAMINE HCL 100 MG TABLET (FP) PO SCH (22:41)
--- NOTE | 2019-06-20 05:12 | EKG ---
Test Reason : Blood Pressure : / mmHG Vent. Rate : 077 BPM Atrial Rate : 077 BPM P-R Int : 134 ms QRS Dur : 098 ms QT Int : 424 ms P-R-T Axes : 047 032 034 degrees QTc Int : 479 ms NORMAL SINUS RHYTHM NORMAL ECG WHEN COMPARED WITH ECG OF 23-AUG-2017 20:37, T WAVE AMPLITUDE HAS DECREASED IN ANTERIOR LEADS Confirmed by CYNTHIA MOTA MD ([id number]) on 06/20/2019 5:12:17 AM Referred By: CARMELO Confirmed By:CYNTHIA MOTA MD
[2019-06-20] MEDS: chlordiazePOXIDE HCL 25 MG CAPSULE PO SCH ×4 (06:08→22:33)
[2019-06-20] MEDS: FERROUS SO4 325 MG TABLET (FP) PO SCH ×3 (07:29→17:42)
[2019-06-20] MEDS: NICOTINE 14 MG/24 HOURS TOPICAL PATCH TD SCH (10:34)
[2019-06-20] MEDS: PANTOPRAZOLE 40 MG TABLET (FP) PO SCH (10:34)
[2019-06-20] MEDS: levETIRAcetam 500 MG TABLET (FP) PO SCH ×2 (10:35→22:33)
[2019-06-20] MEDS: PRENATAL VITAMINS W/ FOLIC ACID TABLET (FP) PO SCH (10:35)
--- NOTE | 2019-06-20 12:27 | PN ---
S CIWA - CIWA Score Nausea/Vomitin-No Nausea/No Vomiting Muscle Tremors: 3 Anxiety: 2 Agitation: 3 Paroxysmal Sweats: 2 Orientation: 0-Oriented Tacttile Disturbances: 0-None Auditory Disturbances: 0-None Visual Disturbances: 0-None Headache: 0-None Present CIWA-Ar Total Score: 10 BHS Progress Note (SOAP) Subjective: sweats irritable agitation interrupted sleep Objective: 06/20/19 12:25 Vital Signs Temperature 98.8 F 06/20/19 09:29 Pulse Rate 107 H 06/20/19 09:29 Respiratory Rate 20 06/20/19 09:29 Blood Pressure 113/64 06/20/19 09:29 O2 Sat by Pulse Oximetry (%) Laboratory Tests 06/19/19 06/19/19 06/19/19 07:50 07:50 07:50 WBC 6.2 RBC 2.18 L Hgb 7.8 L Hct 23.4 L D MCV 107.6 H MCH 35.9 H MCHC 33.4 RDW 20.3 H Plt Count 60 L D MPV 8.9 Sodium 142 Potassium 2.6 L* Chloride 109 H Carbon Dioxide 25 Anion Gap 9 BUN 4.8 L Creatinine 0.6 Est GFR (CKD-EPI)AfAm 145.76 Est GFR (CKD-EPI)NonAf 125.77 Random Glucose 104 Calcium 8.0 L Total Bilirubin 2.5 H AST 239 H ALT 54 Alkaline Phosphatase 339 H Total Protein 6.4 Albumin 2.3 L RPR Titer Nonreactive labs repeat ordered pending results aaox3 lying in bed no acute distress Assessment: 06/20/19 12:25 withdrawal sx Plan: continue detox increase fluids labs ordered for today; pending labs
[2019-06-20 17:42] LABS: BASO % 0.4 % (0-2.0); EOS % 1.3 % (0-4.5); HEMATOCRIT 23.7 % (35.4-49); HEMOGLOBIN 7.7 GM/dL (11.7-16.9); LYMPH % 21.1 % (8-40); MCH 35.6 pg (25.7-33.7); MCHC 32.3 g/dl (32.0-35.9); MEAN CELL VOLUME 110.5 fl (80-96); MONO % 8.3 % (3.8-10.2); NEUT % 68.9 % (42.8-82.8); RBC 2.15 M/mm3 (4.00-5.60); RDW 19.5 % (11.9-15.9); WHITE BLOOD COUNT 7.6 K/mm3 (4.0-10.0)
[2019-06-20 17:49] LABS: ALBUMIN 2.3 g/dl (3.4-5.0); BILIRUBIN,TOTAL 2.9 mg/dL (0.2-1); BLOOD UREA NITROGEN 3.8 mg/dL (7-18); CALCIUM 8.5 mg/dL (8.5-10.1); CREATININE 0.6 mg/dL (0.55-1.3); POTASSIUM 4.3 mmol/L (3.5-5.1); TOT PROT 6.2 g/dl (6.4-8.2)
[2019-06-20 18:01] LABS: MEAN PLT VOLUME 9.7 fl (7.5-11.1); PLATELET COUNT 48 K/MM3 (134-434)
[2019-06-20 19:22] LABS: ANISOCYTOSIS 1+; MACROCYTOSIS 1+; PLATELET ESTIMATE MOD DECREASED
[2019-06-20] MEDS: QUEtiapine FUMARATE 100 MG TABLET (FP) PO SCH (22:33)
[2019-06-20] MEDS: THIAMINE HCL 100 MG TABLET (FP) PO SCH (22:33)
[2019-06-21] MEDS ORDERED: chlordiazePOXIDE HCL 10 MG CAPSULE PO PRN
[2019-06-21] MEDS: chlordiazePOXIDE HCL 10 MG CAPSULE PO SCH ×4 (05:50→22:23)
[2019-06-21] MEDS: FERROUS SO4 325 MG TABLET (FP) PO SCH ×3 (07:01→17:46)
[2019-06-21] MEDS: PANTOPRAZOLE 40 MG TABLET (FP) PO SCH (10:40)
[2019-06-21] MEDS: PRENATAL VITAMINS W/ FOLIC ACID TABLET (FP) PO SCH (10:40)
[2019-06-21] MEDS: levETIRAcetam 500 MG TABLET (FP) PO SCH ×2 (10:40→22:23)
[2019-06-21] MEDS: NICOTINE 14 MG/24 HOURS TOPICAL PATCH TD SCH (10:41)
--- NOTE | 2019-06-21 14:07 | PN ---
S CIWA - CIWA Score Nausea/Vomitin-No Nausea/No Vomiting Muscle Tremors: 2 Anxiety: 1-Mildly Anxious Agitation: 2 Paroxysmal Sweats: No Perspiration Orientation: 0-Oriented Tacttile Disturbances: 0-None Auditory Disturbances: 0-None Visual Disturbances: 0-None Headache: 0-None Present CIWA-Ar Total Score: 5 BHS Progress Note (SOAP) Subjective: sweats mild shakes body aches Objective: 06/21/19 14:08 Vital Signs Temperature 97.9 F 06/21/19 14:01 Pulse Rate 83 06/21/19 14:01 Respiratory Rate 20 06/21/19 14:01 Blood Pressure 104/60 06/21/19 14:01 O2 Sat by Pulse Oximetry (%) Laboratory Tests 06/19/19 06/19/19 06/19/19 07:50 07:50 07:50 WBC 6.2 RBC 2.18 L Hgb 7.8 L Hct 23.4 L D MCV 107.6 H MCH 35.9 H MCHC 33.4 RDW 20.3 H Plt Count 60 L D MPV 8.9 Absolute Neuts (auto) Neutrophils % Lymphocytes % Monocytes % Eosinophils % Basophils % Nucleated RBC % Platelet Estimate Anisocytosis Macrocytosis Sodium 142 Potassium 2.6 L* Chloride 109 H Carbon Dioxide 25 Anion Gap 9 BUN 4.8 L Creatinine 0.6 Est GFR (CKD-EPI)AfAm 145.76 Est GFR (CKD-EPI)NonAf 125.77 Random Glucose 104 Calcium 8.0 L Total Bilirubin 2.5 H AST 239 H ALT 54 Alkaline Phosphatase 339 H Total Protein 6.4 Albumin 2.3 L RPR Titer Nonreactive 06/20/19 06/20/19 14:45 14:45 WBC 7.6 RBC 2.15 L Hgb 7.7 L Hct 23.7 L MCV 110.5 H MCH 35.6 H MCHC 32.3 RDW 19.5 H Plt Count 48 L MPV 9.7 Absolute Neuts (auto) 5.3 Neutrophils % 68.9 D Lymphocytes % 21.1 D Monocytes % 8.3 Eosinophils % 1.3 Basophils % 0.4 Nucleated RBC % 0 Platelet Estimate Mod decreased Anisocytosis 1+ Macrocytosis 1+ Sodium 140 Potassium 4.3 Chloride 108 H Carbon Dioxide 25 Anion Gap 7 L BUN 3.8 L Creatinine 0.6 Est GFR (CKD-EPI)AfAm 145.76 Est GFR (CKD-EPI)NonAf 125.77 Random Glucose 141 H Calcium 8.5 Total Bilirubin 2.9 H AST 203 H ALT 47 Alkaline Phosphatase 316 H Total Protein 6.2 L Albumin 2.3 L RPR Titer repeated labs noted potassium improved thrombocytopenia noted pt on iron supplement TID Assessment: 06/21/19 14:15 withdrawals Plan: continue detox increase fluids
[2019-06-21] MEDS: QUEtiapine FUMARATE 100 MG TABLET (FP) PO SCH (22:23)
[2019-06-21] MEDS: THIAMINE HCL 100 MG TABLET (FP) PO SCH (22:23)
[2019-06-22] MEDS: chlordiazePOXIDE HCL 10 MG CAPSULE PO SCH ×2 (06:06→18:09)
[2019-06-22] MEDS: FERROUS SO4 325 MG TABLET (FP) PO SCH ×3 (07:37→18:08)
[2019-06-22] MEDS: PANTOPRAZOLE 40 MG TABLET (FP) PO SCH (10:25)
[2019-06-22] MEDS: NICOTINE 14 MG/24 HOURS TOPICAL PATCH TD SCH (10:25)
[2019-06-22] MEDS: PRENATAL VITAMINS W/ FOLIC ACID TABLET (FP) PO SCH (10:25)
[2019-06-22] MEDS: levETIRAcetam 500 MG TABLET (FP) PO SCH ×2 (10:25→22:10)
--- NOTE | 2019-06-22 17:45 | PN ---
[facility] CIWA - CIWA Score Nausea/Vomitin-No Nausea/No Vomiting Muscle Tremors: None Anxiety: 1-Mildly Anxious Agitation: 1-Slight > Activity Paroxysmal Sweats: No Perspiration Orientation: 0-Oriented Tacttile Disturbances: 0-None Auditory Disturbances: 0-None Visual Disturbances: 0-None Headache: 0-None Present CIWA-Ar Total Score: 2 BHS Progress Note (SOAP) Subjective: Patient denies current Withdrawal / Detox symptoms and reports that he feels well overall at this time. Objective: PATIENT A & O X 3, OBSERVED AMBULATING ON DETOX UNIT UNASSISTED. IN NO ACUTE DISTRESS. 06/22/19 17:40 Vital Signs Temperature 98.1 F 06/22/19 13:36 Pulse Rate 100 H 06/22/19 13:36 Respiratory Rate 18 06/22/19 13:36 Blood Pressure 110/71 06/22/19 13:36 O2 Sat by Pulse Oximetry (%) Laboratory Tests 06/19/19 06/19/19 06/19/19 07:50 07:50 07:50 WBC 6.2 RBC 2.18 L Hgb 7.8 L Hct 23.4 L D MCV 107.6 H MCH 35.9 H MCHC 33.4 RDW 20.3 H Plt Count 60 L D MPV 8.9 Absolute Neuts (auto) Neutrophils % Lymphocytes % Monocytes % Eosinophils % Basophils % Nucleated RBC % Platelet Estimate Anisocytosis Macrocytosis Sodium 142 Potassium 2.6 L* Chloride 109 H Carbon Dioxide 25 Anion Gap 9 BUN 4.8 L Creatinine 0.6 Est GFR (CKD-EPI)AfAm 145.76 Est GFR (CKD-EPI)NonAf 125.77 Random Glucose 104 Calcium 8.0 L Total Bilirubin 2.5 H AST 239 H ALT 54 Alkaline Phosphatase 339 H Total Protein 6.4 Albumin 2.3 L RPR Titer Nonreactive 06/20/19 06/20/19 14:45 14:45 WBC 7.6 RBC 2.15 L Hgb 7.7 L Hct 23.7 L MCV 110.5 H MCH 35.6 H MCHC 32.3 RDW 19.5 H Plt Count 48 L MPV 9.7 Absolute Neuts (auto) 5.3 Neutrophils % 68.9 D Lymphocytes % 21.1 D Monocytes % 8.3 Eosinophils % 1.3 Basophils % 0.4 Nucleated RBC % 0 Platelet Estimate Mod decreased Anisocytosis 1+ Macrocytosis 1+ Sodium 140 Potassium 4.3 Chloride 108 H Carbon Dioxide 25 Anion Gap 7 L BUN 3.8 L Creatinine 0.6 Est GFR (CKD-EPI)AfAm 145.76 Est GFR (CKD-EPI)NonAf 125.77 Random Glucose 141 H Calcium 8.5 Total Bilirubin 2.9 H AST 203 H ALT 47 Alkaline Phosphatase 316 H Total Protein 6.2 L Albumin 2.3 L RPR Titer LABS NOTED. Assessment: 06/22/19 17:42 WITHDRAWAL SYMPTOMS. ANEMIA. THROMBOCYTOPENIA. ELEVATED AST LEVEL. ELEVATED ALKALINE PHOSPHATASE LEVEL. HYPERBILIRUBINEMIA. 06/22/19 17:43 Plan: CONTINUE DETOX. PATIENT SCHEDULED FOR D/C FROM DETOX UNIT TOMORROW. PATIENT ADVISED TO FOLLOW-UP WITH [facility] AFTER DISCHARGE FROM DETOX FOR MEDICAL ASSESSMENT AND FOR ANEMIA, FOR LOW PLATELET LEVEL, FOR ELEVATED AST AND ALKALINE PHOSPHATASE LEVELS, ELEVATED NOTED ON DETOX ADMISSION LABORATORY ASSESSMENT. PATIENT VERBALIZED UNDERSTANDING OF RECOMMENDATION. COPIES OF RESULTS OF ALL LABS DRAWN WHILE ADMITTED FOR DETOX WILL BE GIVEN TO PATIENT AT TIME OF DISCHARGE FROM DETOX UNIT TO TAKE WITH HIM TO PRIMARY CARE MEDICAL PROVIDER'S OFFICE AFTER DISCHARGE FROM DETOX UNIT.
[2019-06-22] MEDS: QUEtiapine FUMARATE 100 MG TABLET (FP) PO SCH (22:10)
[2019-06-22] MEDS: THIAMINE HCL 100 MG TABLET (FP) PO SCH (22:10)
[2019-06-23] MEDS ORDERED: chlordiazePOXIDE HCL 10 MG CAPSULE PO ONE (05:00)
[2019-06-23 07:16] VITALS: PULSE 84; TEMP 97.7
[2019-06-23 07:30] VITALS: BP 95/71
[2019-06-23] MEDS: FERROUS SO4 325 MG TABLET (FP) PO SCH (07:35)
[2019-06-23] MEDS: NICOTINE 14 MG/24 HOURS TOPICAL PATCH TD SCH (10:32)
[2019-06-23] MEDS: levETIRAcetam 500 MG TABLET (FP) PO SCH (10:32)
[2019-06-23] MEDS: PRENATAL VITAMINS W/ FOLIC ACID TABLET (FP) PO SCH (10:32)
[2019-06-23] MEDS: PANTOPRAZOLE 40 MG TABLET (FP) PO SCH (10:32)
--- NOTE | 2019-06-23 16:52 | DS ---
[facility] Detox Discharge Summary Admission Date: 06/18/19 Discharge Date: 06/23/19 - History Present History: Alcohol Dependence, Cannabis Dependence Additional Comments: Patient completed detox successfully and discharged safely. Patient instructed to follow up with PCP within 1-2 weeks. Pertinent Past History: Alcohol related seizure disorder - Physical Exam Results Vital Signs: Vital Signs Temperature 97.7 F 06/23/19 07:11 Pulse Rate 84 06/23/19 07:11 Respiratory Rate 16 06/23/19 07:11 Blood Pressure 95/71 06/23/19 07:29 O2 Sat by Pulse Oximetry (%) Pertinent Admission Physical Exam Findings: Withdrawal sxs Laboratory Tests 06/19/19 06/19/19 06/19/19 07:50 07:50 07:50 WBC 6.2 RBC 2.18 L Hgb 7.8 L Hct 23.4 L D MCV 107.6 H MCH 35.9 H MCHC 33.4 RDW 20.3 H Plt Count 60 L D MPV 8.9 Absolute Neuts (auto) Neutrophils % Lymphocytes % Monocytes % Eosinophils % Basophils % Nucleated RBC % Platelet Estimate Anisocytosis Macrocytosis Sodium 142 Potassium 2.6 L* Chloride 109 H Carbon Dioxide 25 Anion Gap 9 BUN 4.8 L Creatinine 0.6 Est GFR (CKD-EPI)AfAm 145.76 Est GFR (CKD-EPI)NonAf 125.77 Random Glucose 104 Calcium 8.0 L Total Bilirubin 2.5 H AST 239 H ALT 54 Alkaline Phosphatase 339 H Total Protein 6.4 Albumin 2.3 L RPR Titer Nonreactive 06/20/19 06/20/19 14:45 14:45 WBC 7.6 RBC 2.15 L Hgb 7.7 L Hct 23.7 L MCV 110.5 H MCH 35.6 H MCHC 32.3 RDW 19.5 H Plt Count 48 L MPV 9.7 Absolute Neuts (auto) 5.3 Neutrophils % 68.9 D Lymphocytes % 21.1 D Monocytes % 8.3 Eosinophils % 1.3 Basophils % 0.4 Nucleated RBC % 0 Platelet Estimate Mod decreased Anisocytosis 1+ Macrocytosis 1+ Sodium 140 Potassium 4.3 Chloride 108 H Carbon Dioxide 25 Anion Gap 7 L BUN 3.8 L Creatinine 0.6 Est GFR (CKD-EPI)AfAm 145.76 Est GFR (CKD-EPI)NonAf 125.77 Random Glucose 141 H Calcium 8.5 Total Bilirubin 2.9 H AST 203 H ALT 47 Alkaline Phosphatase 316 H Total Protein 6.2 L Albumin 2.3 L RPR Titer Labs reviewed: Elevated LFTs (most likely due to alcoholism), instructed to follow up with PCP for monitoring/further workup - Treatment Hospital Course: Detox Protocol Followed, Detoxed Safely, Responded well, Discharged Condition Good - Medication Discharge Medications: Ambulatory Orders Folic Acid 1 mg PO DAILY 08/23/17 Pantoprazole Sodium [Protonix -] 40 mg PO DAILY 08/23/17 Thiamine HCl [Vitamin B-1] 50 mg PO DAILY 08/23/17 Ferrous Sulfate [Feosol] 325 mg PO BID 7 Days #14 tablet 06/22/19 levETIRAcetam [Keppra -] 500 mg PO BID 30 Days #60 tablet 06/22/19 - Diagnosis (1) Alcohol dependence with uncomplicated withdrawal Status: Acute (2) Cannabis dependence Status: Acute (3) Elevated liver enzymes Status: Acute (4) Alcohol related seizure Status: Chronic (5) Bipolar disorder Status: Chronic (6) Nicotine dependence Status: Chronic Qualifiers: Nicotine product type: cigarettes Substance use status: in withdrawal Qualified Code(s): F17.213 - Nicotine dependence, cigarettes, with withdrawal - AMA Did Patient Leave Against Medical Advice: No (Follow up with PCP within 1-2 weeks)
== END 2019-06-23 10:29 | disposition home or self-care (01) | DRG 775 ==
LOC: YASAS 16:17 → Y6N 20:57
PROVIDERS: ADMIT Allergy & Immunology; ATTEND Allergy & Immunology
PROC: HZ2ZZZZ Detoxification Services for Substance Abuse Treatment (ICD-10-PCS; principal; 2019-06-18)
DX: F10.230 Alcohol dependence with withdrawal, uncomplicated (principal); F12.20 Cannabis dependence, uncomplicated; F17.213 Nicotine dependence, cigarettes, with withdrawal; F31.9 Bipolar disorder, unspecified; R94.5 Abnormal results of liver function studies; D64.9 Anemia, unspecified; D69.6 Thrombocytopenia, unspecified; E80.6 Other disorders of bilirubin metabolism; R63.4 Abnormal weight loss; Z86.69 Personal history of other diseases of the nervous system and sense organs
CPT/HCPCS: 36415; 80053; 85025; 85027; 86593; 93005; 93010